=== PATIENT | male | born 1940 | race Asian ===

== ENCOUNTER 2017-08-30 19:27 | Inpatient (IN) | payer MEDICARE, MEDICAID ==
[~2017-08-30] VITALS: Ht 175.3 cm; Wt 65.8 kg
[2017-08-30] MEDS ORDERED: Acetaminophen 650 MG SUPP RECTAL ONE ×2 (19:45→20:30)
[2017-08-30] MEDS ORDERED: Vancomycin 1 GM in NS 275 ML IV ONE (19:45)
[2017-08-30 20:02] LABS: HEMATOCRIT 27.2 % (42.0-52.0); HEMOGLOBIN 9.6 G/DL (14.2-18.0); MEAN CORPUSCULAR VOLUME 88 FL (80-99); PLATELET COUNT 182 K/UL (150-450); RED BLOOD COUNT 3.09 M/UL (4.70-6.10); RED CELL DISTRIBUTION WIDTH 13.9 % (11.6-14.8); WHITE BLOOD COUNT 11.1 K/UL (4.8-10.8)
[2017-08-30 20:03] LABS: BASOPHILS % (AUTO) 0.3 % (0.0-2.0); EOSINOPHILS % (AUTO) 0.2 % (0.0-3.0); LYMPHOCYTES % (AUTO) 6.5 % (20.0-45.0)
[2017-08-30] MEDS: Cefepime HCl 1 GM in NS 55 ML IV SCH (20:11)
[2017-08-30 20:14] LABS: ANION GAP 10 mmol/L (5-15); BLOOD UREA NITROGEN 46 mg/dL (7-18); CARBON DIOXIDE 25 MMOL/L (21-32); CHLORIDE 90 MMOL/L (98-107); CREATININE 2.1 MG/DL (0.55-1.30); POTASSIUM 5.3 MMOL/L (3.5-5.1); SODIUM 125 MMOL/L (136-145)
[2017-08-30 20:27] LABS: ALANINE AMINOTRANSFERASE 41 U/L (12-78); ALBUMIN/GLOBULIN RATIO 0.7 (1.0-2.7); ALKALINE PHOSPHATASE 186 U/L (46-116); ASPARTATE AMINO TRANSFERASE 22 U/L (15-37); BILIRUBIN,TOTAL 0.4 MG/DL (0.2-1.0); CKMB < 0.5 NG/ML (0.0-3.6); CREATINE KINASE 68 U/L (26-308)
[2017-08-30 20:30] VITALS: BP 92/41
[2017-08-30 21:00] VITALS: BP 77/57
[2017-08-30 21:30] VITALS: BP 96/41
[2017-08-30 22:00] VITALS: BP 93/38
[2017-08-30] MEDS ORDERED: Albuterol/Ipratropium 3ml neb HHN PRN (22:00)
[2017-08-30] MEDS ORDERED: Piperacillin/Tazobactam 3.375 GM in NS 110 ML IVPB SCH (22:00)
[2017-08-30 22:11] LABS: APPEARANCE,URINE CLOUDY; BILIRUBIN, URINE NEGATIVE (NEGATIVE); COLOR,URINE YELLOW; GLUCOSE, URINE (UA) NEGATIVE (NEGATIVE); KETONES,URINE NEGATIVE (NEGATIVE); LEUKOCYTE ESTERASE ,URINE 2+ (NEGATIVE); NITRITE,URINE NEGATIVE (NEGATIVE); PH,URINE 5 (4.5-8.0); PROTEIN,URINE 2+ (NEGATIVE); UROBILINOGEN,URINE NORMAL MG/DL (0.0-1.0)
--- NOTE | 2017-08-30 22:20 | Emergency Room Report ---
History of Present Illness General Chief Complaint: Altered Level of Consciousness Source: Medical Record Present Illness HPI This patient presents from a [facility] facility. He has a history of respiratory failure and has a tracheostomy with blow-by oxygen. His a history of COPD, diabetes, epilepsy, CVA. He is aphasic at baseline. He presents from the [facility] facility for concern of fever/infection. There is no other history available. The patient is nonverbal. Allergies: Coded Allergies: No Known Allergies (Unverified , 08/30/17) Patient History Past Medical History: see triage record, DM, HTN, SD, CAD, COPD, CVA/TIA, dementia, seizures Past Surgical History: other - Trach/PEG Social History: Denies: smoking, alcohol use, drug use Reviewed Nursing Documentation: PMH: Agreed; PSxH: Agreed Nursing Documentation-PMH Past Medical History: No History, Except For Hx Hypertension: Yes Hx COPD: Yes - COPD, trach- non vent depenendent, pleural effusion Hx Diabetes: Yes Hx Gastrointestinal Problems: Yes - gtube, gerd Review of Systems All Other Systems: negative except mentioned in HPI Physical Exam Vital Signs Date Time Temp Pulse Resp B/P (MAP) Pulse Ox O2 Delivery O2 Flow Rate FiO2 08/30/17 19:23 101.2 113 16 93/56 93 T-piece 10.0 101.1 Sp02 EP Interpretation: reviewed, normal General Appearance: no apparent distress, alert, GCS 15, non-toxic Head: normocephalic, atraumatic ENT: no angioedema Neck: supple/symm/no masses, other - Tracheostomy/Trach Respiratory: no respiratory distress, no retraction, no accessory muscle use, rales, rhonchi Cardiovascular #1: no edema, tachycardia Gastrointestinal: normal bowel sounds, non tender, soft, non-distended, no guarding, no rebound, other - PEG Rectal: deferred Musculoskeletal: non-tender, other - At baseline Neurologic: alert, other - At baseline. Nonfocal. Psychiatric: mood/affect normal Skin: warm/dry, other - See RN skin exam Medical Decision Making Diagnostic Impression: Primary Impression: Pneumonia Additional Impressions: Hyponatremia Renal failure UTI (urinary tract infection) Severe sepsis ER Course This patient presents in severe sepsis and with pneumonia. He has a fever of 101 on arrival. He also is found to have a pneumonia on chest x-ray. He is given IV fluids and broad-spectrum antibiotics. I'm unsure of this patient's baseline renal function but his renal function is abnormal. The patient is chronically ill and has multiple chronic medical problems. He is admitted to the ICU. This patient is critically ill. This patient required complex medical decision- making, aggressive intervention, extensive laboratory workup and monitoring. Critical care time: 40 minutes. Laboratory Tests Test 08/30/17 19:30 08/30/17 21:15 08/30/17 21:35 White Blood Count 11.1 K/UL (4.8-10.8) H Red Blood Count 3.09 M/UL (4.70-6.10) L Hemoglobin 9.6 G/DL (14.2-18.0) L Hematocrit 27.2 % (42.0-52.0) L Mean Corpuscular Volume 88 FL (80-99) Mean Corpuscular Hemoglobin 31.1 PG (27.0-31.0) H Mean Corpuscular Hemoglobin Concent 35.4 G/DL (32.0-36.0) Red Cell Distribution Width 13.9 % (11.6-14.8) Platelet Count 182 K/UL (150-450) Mean Platelet Volume 6.1 FL (6.5-10.1) L Neutrophils (%) (Auto) 89.0 % (45.0-75.0) H Lymphocytes (%) (Auto) 6.5 % (20.0-45.0) L Monocytes (%) (Auto) 4.0 % (1.0-10.0) Eosinophils (%) (Auto) 0.2 % (0.0-3.0) Basophils (%) (Auto) 0.3 % (0.0-2.0) Sodium Level 125 MMOL/L (136-145) L Potassium Level 5.3 MMOL/L (3.5-5.1) H Chloride Level 90 MMOL/L (98-107) L Carbon Dioxide Level 25 MMOL/L (21-32) Anion Gap 10 mmol/L (5-15) Blood Urea Nitrogen 46 mg/dL (7-18) H Creatinine 2.1 MG/DL (0.55-1.30) H Estimate Glomerular Filtration Rate mL/min (>60) Glucose Level 81 MG/DL (74-106) Lactic Acid Level 2.10 mmol/L (0.66-2.22) Pending Calcium Level 9.0 MG/DL (8.5-10.1) Total Bilirubin 0.4 MG/DL (0.2-1.0) Aspartate Amino Transferase (AST) 22 U/L (15-37) Alanine Aminotransferase (ALT) 41 U/L (12-78) Alkaline Phosphatase 186 U/L (46-116) H Total Creatine Kinase 68 U/L (26-308) Creatine Kinase MB < 0.5 NG/ML (0.0-3.6) Creatine Kinase MB Relative Index 0.7 Troponin I 0.000 ng/mL (0.000-0.056) Total Protein 7.6 G/DL (6.4-8.2) Albumin 3.0 G/DL (3.4-5.0) L Globulin 4.6 g/dL Albumin/Globulin Ratio 0.7 (1.0-2.7) L Urine Color Yellow Urine Appearance Cloudy Urine pH 5 (4.5-8.0) Urine Specific Ruby 1.010 (1.005-1.035) Urine Protein 2+ (NEGATIVE) H Urine Glucose (UA) Negative (NEGATIVE) Urine Ketones Negative (NEGATIVE) Urine Occult Blood 5+ (NEGATIVE) H Urine Nitrite Negative (NEGATIVE) Urine Bilirubin Negative (NEGATIVE) Urine Urobilinogen Normal MG/DL (0.0-1.0) Urine Leukocyte Esterase 2+ (NEGATIVE) H Urine RBC Pending Urine WBC Pending Urine Squamous Epithelial Cells Pending Urine Bacteria Pending Microbiology Date/Time Source Procedure Growth Status 08/30/17 19:32 Nasal Nares Influenza Types A,B Antigen (SOPHIA) - Final Complete EKG Diagnostic Results Rate: tachycardiac Rhythm: other - S.tachycardia ST Segments: other - NSST Rhythm Strip Diag. Results EP Interpretation: yes Rate: 100's Rhythm: no PVC's, no ectopy, other - S.tach Chest X-Ray Diagnostic Results Chest X-Ray Diagnostic Results : Chest X-Ray Ordered: Yes # of Views/Limited/Complete: 1 View Indication: Other EP Interpretation: Yes Interpretation: other - RLL opacity Impression: Other - See above Electronically Signed by: Chente Last Vital Signs Date Time Temp Pulse Resp B/P (MAP) Pulse Ox O2 Delivery O2 Flow Rate FiO2 08/30/17 20:12 101.2 08/30/17 19:23 113 16 93/56 93 T-piece 10.0 Disposition: ADMITTED INPATIENT Condition: Critical Referrals: NORM SCOTT (PCP) ORALIA MARTINES D.O. Aug 30, 2017 22:20
[2017-08-30 23:00] VITALS: BP 97/37
[2017-08-30] MEDS: D5NS 1,000 ML IV SCH (23:31)
[2017-08-31] VITALS (24 sets, daily range): BP systolic 89–161; BP diastolic 40–130
[2017-08-31] MEDS: Piperacillin/Tazobactam 3.375 GM in D5W 110 ML IVPB SCH ×2 (00:10→06:32)
[2017-08-31] MEDS: Acetaminophen 650mg/20.3ml GT PRN ×2 (00:24→05:19)
[2017-08-31] MEDS: D5NS 1,000 ML IV SCH ×3 (05:20→21:50)
[2017-08-31] MEDS ORDERED: Piperacillin/Tazobactam 3.375 GM in D5W 110 ML IVPB SCH (06:00)
[2017-08-31 06:19] LABS: HEMATOCRIT 23.3 % (42.0-52.0); HEMOGLOBIN 8.3 G/DL (14.2-18.0); MEAN CORPUSCULAR VOLUME 91 FL (80-99); PLATELET COUNT 161 K/UL (150-450); RED BLOOD COUNT 2.56 M/UL (4.70-6.10)
[2017-08-31] MEDS ORDERED: HEPARIN SO5000 UNIT2 SUBQ (06:22)
[2017-08-31] MEDS ORDERED: METHYLPHENI5 MG/5 ML GT (06:22)
[2017-08-31] MEDS ORDERED: MULTIVITAMINS1 EAC8 GT (06:22)
[2017-08-31] MEDS ORDERED: NYSTATIN100000 UN1 ORAL (06:22)
[2017-08-31] MEDS ORDERED: CALCITRIOL0.25 MCG PO (06:22)
[2017-08-31] MEDS ORDERED: CALCITRIOL GT (06:22)
[2017-08-31] MEDS ORDERED: LEVOTHYROXINE75 MCG GT (06:22)
[2017-08-31] MEDS ORDERED: ZINC50 MG GT (06:22)
[2017-08-31] MEDS ORDERED: PANTOPRAZOLE SO40 MG GT (06:22)
[2017-08-31] MEDS ORDERED: BACTRIM DOUBLE S1 E1 ORAL (06:22)
[2017-08-31] MEDS ORDERED: TACROLIMUS1 MG GT (06:22)
[2017-08-31] MEDS ORDERED: HYDROCORTISONE5 MG GT (06:22)
[2017-08-31] MEDS ORDERED: ZOVIRAX200 MG GT (06:22)
[2017-08-31] MEDS ORDERED: LEVOTHYROXINE25 MCG GT (06:22)
[2017-08-31 06:30] LABS: ALANINE AMINOTRANSFERASE 37 U/L (12-78); ALBUMIN 2.6 G/DL (3.4-5.0); ALBUMIN/GLOBULIN RATIO 0.6 (1.0-2.7); ALKALINE PHOSPHATASE 155 U/L (46-116); ANION GAP 9 mmol/L (5-15); ASPARTATE AMINO TRANSFERASE 31 U/L (15-37); BILIRUBIN,TOTAL 0.5 MG/DL (0.2-1.0); BLOOD UREA NITROGEN 47 mg/dL (7-18); CALCIUM 8.3 MG/DL (8.5-10.1); CARBON DIOXIDE 21 MMOL/L (21-32); CHLORIDE 98 MMOL/L (98-107); POTASSIUM 5.5 MMOL/L (3.5-5.1); SODIUM 128 MMOL/L (136-145)
[2017-08-31] MEDS ORDERED: Sodium Polystyrene Sulfonate Enema RECTAL ONE (09:00)
[2017-08-31] MEDS ORDERED: Sodium Polystyrene Sulfonate Enema RECTAL SCH (09:15)
[2017-08-31] MEDS: Pantoprazole Inj IVP SCH (09:18)
[2017-08-31] MEDS: Heparin 5000 units/ml inj SUBQ SCH ×2 (09:38→20:40)
[2017-08-31] MEDS: Cefepime HCl 1 GM in NS 55 ML IV SCH (10:30)
[2017-08-31] MEDS: Acyclovir 200mg Cap GT SCH ×2 (11:24→18:00)
[2017-08-31] MEDS: Hydrocortisone 100mg Inj IV SCH ×3 (11:24→21:49)
[2017-08-31 11:29] LABS: CREATINE KINASE 741 U/L (26-308)
[2017-08-31] MEDS: Calcitriol 0.25mcg Cap PEG SCH (11:36)
--- NOTE | 2017-08-31 11:38 | Diagnostic Imaging Report ---
Indication: Dyspnea Comparison: None A single view chest radiograph was obtained. Findings: There is infiltrate suspected at the right lung base. Correlate clinically. Heart is borderline enlarged. Tracheostomy noted. Osteopenia noted. IMPRESSION: Possible infiltrate right lung base. Correlate clinically
[2017-08-31 13:08] LABS: APPEARANCE,URINE SLIGHTLY CLOUDY; BILIRUBIN, URINE NEGATIVE (NEGATIVE); GLUCOSE, URINE (UA) NEGATIVE (NEGATIVE); KETONES,URINE NEGATIVE (NEGATIVE); LEUKOCYTE ESTERASE ,URINE NEGATIVE (NEGATIVE); NITRITE,URINE NEGATIVE (NEGATIVE); PH,URINE 5 (4.5-8.0); PROTEIN,URINE 2+ (NEGATIVE); UROBILINOGEN,URINE NORMAL MG/DL (0.0-1.0)
[2017-08-31 13:12] LABS: COLOR,URINE YELLOW
[2017-08-31] MEDS: Zosyn 2.25 gm in D5W 55ml IV SCH ×2 (14:18→21:49)
[2017-08-31] MEDS: Vancomycin 750mg/NS 250ml IVPB SCH (19:54)
[2017-08-31] MEDS ORDERED: D5NS 1000ml IV ONE (19:54)
[2017-08-31] MEDS ORDERED: Tubing IV Secondary IV ONE (19:54)
--- NOTE | 2017-08-31 20:30 | History and Physical Report ---
DATE OF ADMISSION: 08/30/2017 CHIEF COMPLAINT: Sepsis and shock. HISTORY OF PRESENT ILLNESS: The patient is a 77-year-old male, who has history of cirrhosis. He is status post liver transplant that was done in March 2017. His hospital course was complicated by respiratory failure. He was transferred to a long-term acute care. He returned later to [facility] a few weeks ago with complaints of a broken G-tube. At that time, he was residing in [facility]. He was admitted for several days and then later discharged to the detention facility a little over a week ago. On the day of transfer here, the patient was noted to be febrile and short of breath. He was also hypotensive. On evaluation in the emergency room, the patient was hypotensive. He had x-ray evidence of pneumonia. He had an elevated white count and evidence of acute renal failure. He is currently on T-piece and now admitted for further evaluation and care. He is somnolent and sleepy. PAST MEDICAL HISTORY: As above. He has a history of pituitary adenoma, status post resection, history of diabetes, history of acute renal failure, history of adrenal insufficiency, history of DVT/PE, and GERD. History Of prostate cancer. PAST SURGICAL HISTORY: Includes liver transplant, pituitary adenoma resection, G-tube, and tracheostomy. CURRENT MEDICATIONS: Reconciled and reviewed. ALLERGIES: None. SOCIAL HISTORY: Negative for tobacco, ethanol, or drugs. FAMILY HISTORY: None. REVIEW OF SYSTEMS: From the patient is unobtainable as the patient is confused. PHYSICAL EXAMINATION: VITAL SIGNS: Temperature 101.3 degrees, pulse , respirations 36, and blood pressure 128/101. GENERAL: The patient is well-developed and is somnolent, sleepy, and poorly responsive. NECK: Supple. HEART: Regular rate and rhythm. LUNGS: rhonchi and rales. ABDOMEN: Soft, nontender, and nondistended. EXTREMITIES: Without clubbing, cyanosis, or edema. LABORATORY AND DIAGNOSTIC DATA: White count was 11, hemoglobin 9.6, hematocrit 27, and platelets 182,000. Sodium 125, potassium 5.3, chloride 90, bicarbonate 25, BUN 46, and creatinine 2.1. UA showed 2 to 4 WBCs. Per report from ER, the patient had possible pneumonia on x-ray. ASSESSMENT: This is a 77-year-old male with history of liver transplant, chronic respiratory failure, diabetes, history of adrenal insufficiency, and hypothyroidism, admitted with septic shock from pneumonia. 1. Septic shock. 2. Pneumonia. 3. History of adrenal insufficiency. 4. Respiratory failure. 5. Acute renal failure. 6. Toxic metabolic encephalopathy. 7. Hyponatremia. 8. Hyperkalemia. PLAN: Aggressive fluid resuscitation. Pressors as needed. Broad-spectrum IV antibiotic therapy. Infectious Diseases, Cardiology, Pulmonary, GI, and Renal consultations will be obtained. We will check a venous duplex of the lower extremities. Check an echo. Plan of care was discussed with the patient's son at the bedside. Rigoberto Rai M.D. DR: Rafaela JOB#: [id number] CC:
--- NOTE | 2017-08-31 21:00 | Consultation ---
DATE OF CONSULTATION: 08/31/2017 PULMONARY CONSULTATION REFERRING PHYSICIAN: Rigoberto Rai M.D. REASON FOR CONSULTATION: Respiratory failure and pneumonia. HISTORY OF PRESENT ILLNESS: The patient is a 77-year-old male, who is status post orthotopic liver transplantation. The patient with history of stormy hospital course over at [facility]. The patient with respiratory failure, tracheostomy, and on oxygen. The patient with history of COPD. The patient has failed to wean. The patient was seen, evaluated, and noted to be somewhat hypotensive. Also with evidence of pneumonia. The patient with acute change overall. He was recently seen and was noted to be fairly stable and comfortable. Now, noted to have fevers. The patient was desaturating at the senior care. Also noted to be tachycardic. The patient's care discussed and reviewed. The findings reviewed. The care discussed with family at bedside, they would like him to transfer to [facility] when bed is available. PAST MEDICAL HISTORY: Notable for diabetes, hypertension, DC, CAD, COPD, CVA, dementia, seizures, tracheostomy, G-tube, lung transplant, pleural effusions, and prior pneumonia. MEDICATIONS: Reviewed. ALLERGIES: Reviewed. SOCIAL HISTORY: Currently, at [facility]. Currently, nonsmoker and nondrinker. The patient is mostly bedbound. REVIEW OF SYSTEMS: Unobtainable due to the patient's present state. PHYSICAL EXAMINATION: VITAL SIGNS: Notable for T-max 101.4 degrees, heart rate 124, O2 sat 96%. The patient is on trach collar. The patient is on high FiO2 at present, but saturations are adequate 98%. Respiratory rate is 32 to 36. HEENT: Negative. NECK: Supple. Tracheostomy is in midline. Carotids 2+. LUNGS: With scattered rhonchi. Moderate air entry, slightly reduced. CARDIAC: Normal S1 and S2. Somewhat tachycardic without murmurs, rubs, or gallops. ABDOMEN: Soft and nontender. No distention. EXTREMITIES: No cyanosis, clubbing, or edema. NEUROLOGICAL: Somewhat withdrawn, appears to be more lethargic than baseline. LABORATORY DATA: Reviewed. White count 12, hemoglobin 8.3, hematocrit 23.3, and platelets of 161,000. Chemistries noted and reviewed. Sodium 128, potassium 5.5, BUN 47, and creatinine is 2. Liver enzymes fairly negative except the alkaline phosphate 155. The cultures are thus far pending. IMPRESSION: 1. Respiratory failure. 2. Evidence of pneumonia. 3. Evidence of fevers. 4. Tachycardia. 5. Evidence of acute on chronic renal failure. 6. Leukocytosis. 7. Anemia. 8. Possible sepsis. 9. Severe protein-calorie malnutrition. RECOMMENDATIONS: Supportive care. Monitor arterial blood gases. Monitor acid-base status. Nebulized therapy with DuoNeb, empiric antibiotics, and Solu-Cortef. Resume medications. Monitor hypotension. Pressors as needed. Infectious Diseases evaluation. Stabilize and transfer the patient to [facility] once bed is available and the patient is otherwise stable. Matias Hernandez M.D. DR: Lui JOB#: [id number] CC: FATIMAH
--- NOTE | 2017-08-31 21:30 | Consultation ---
DATE OF CONSULTATION: 08/31/2017 NEPHROLOGY CONSULTATION CONSULTING PHYSICIAN: Israel Damian M.D. REFERRING PHYSICIAN: Tab Salgado M.D. REASON FOR CONSULTATION: Acute kidney injury. HISTORY OF PRESENT ILLNESS: The patient presents from an [facility] with a fever. He is a 77-year-old man, who is on a tracheostomy, gastrostomy, has had central nervous system injury. 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 He is unable to give a history. PAST SURGICAL HISTORY: Prior surgery includes pituitary surgery, coronary angio and intervention, liver transplant, and tracheostomy. MEDICATIONS: From [facility] facility have been reviewed. PHYSICAL EXAMINATION: GENERAL: The patient is having a tracheostomy. He blinks his eyes, does not follow on the ventilator. VITAL SIGNS: Temperature 98.9, pulse 112, respirations 30, blood pressure 135/85, and saturation 100% on the ventilator. HEAD EYES, EARS, NOSE, AND THROAT: There is ptosis of the right eyelid. Sclerae are nonicteric. Throat is clear. NECK: Tracheostomy. LUNGS: Bilateral crackles and rhonchi. HEART: Rhythm is regular and tachycardic. ABDOMEN: Soft. I am unable to feel liver or spleen. There is a gastrostomy. EXTREMITIES: Show muscle wasting. No edema. NEUROLOGIC: He is unresponsive. He moves his extremities irritative stimuli. LABORATORY AND DIAGNOSTIC DATA: Pertinent labs, today, sodium 128, potassium 5.5, chloride 98, CO2 21, BUN 47, and creatinine is 2. Albumin is 2.6. CK is 741. Uric acid 5.1. Blood gas, pH 7.45, pCO2 26.2, pO2 is 61.5, - 5.6 base excess. White count 12, hemoglobin 8.3. Chest x-ray shows a possible infiltrate. recently noted labs on 08/19/2017, the creatinine was 1.1 and BUN is 42. IMPRESSION: Acute kidney injury with oliguria, possibly acute tubular necrosis, secondary to sepsis, possibly nephrotoxic, secondary to immunosuppressants, possible prerenal component. PLAN: The patient will be treated with broad-spectrum antibiotics. Intravenous hydration. Ortega catheter. Check urine electrolytes. Avoid potassium retaining medicines. His condition is critical and guarded. Thank you so much. Israel Damian M.D. DR: BELINDA JOB#: [id number] CC:
--- NOTE | 2017-08-31 22:15 | Consultation ---
DATE OF CONSULTATION: 08/31/2017 INFECTIOUS DISEASES CONSULTATION CONSULTING PHYSICIAN: Farida Barakat M.D. REFERRING PHYSICIAN: Rigoberto Rai M.D. REASON FOR CONSULTATION: Pneumonia. HISTORY OF PRESENTING ILLNESS: This is a 77-year-old gentleman with history of respiratory failure, status post tracheostomy, diabetes, hypertension, CVA, and dementia, who comes in from a residential facility with fevers. He was seen in [facility] emergency room where he was found to have pneumonia and an Infectious Diseases consultation has been obtained for antibiotics. PAST MEDICAL HISTORY: 1. History of diabetes. 2. Hypertension. 3. Myocardial infarction. 4. Coronary artery disease. 5. COPD. 6. CVA. 7. Dementia. 8. Seizures. 9. Respiratory failure, status post tracheostomy. 10. Status post G-tube placement. MEDICATIONS: As an inpatient, the patient is on Bactrim, IV vancomycin, Zosyn, acyclovir, levothyroxine, Prograf, fluconazole, calcitriol, hydrocortisone, Protonix, subcutaneous heparin, Zofran, Tylenol, and albuterol. SOCIAL HISTORY: He does not smoke, drink, or use drugs. FAMILY HISTORY: Unknown. REVIEW OF SYSTEMS: Unable to obtain currently. PHYSICAL EXAMINATION: VITAL SIGNS: Temperature of 101.3 degrees, T-max of 101.4 degrees, pulse of 112, respiratory rate of 32, blood pressure 149/130, and O2 saturation of 98%. HEENT: Pupils equally reactive to light and accommodation. Mouth appears clean without thrush. NECK: Supple. No adenopathy. No JVD. The patient is on a T-tube. CARDIOVASCULAR: Regular rate and rhythm. No murmurs. LUNGS: Wheezing and crackles noted bilaterally. ABDOMEN: Soft and nontender. No organomegaly. G-tube site appears clean. EXTREMITIES: No cyanosis. No clubbing. No edema. LABORATORY AND DIAGNOSTIC DATA: White count of 12, hemoglobin 8.3, hematocrit 23.3, MCV 91, and platelet count of 161,000 with neutrophils of 92%. Sodium 128, potassium 5.5, chloride 98, bicarbonate 21, BUN 47, creatinine of 2, glucose 98, and calcium 8.3. Total bilirubin 0.5. AST 31, ALT 37, and alkaline phosphatase 155. Total protein 6.7. Albumin 2.6. UA showing 2 to 4 white cells. Nasal swab was negative for influenza A and B. Urine cultures are pending. Blood cultures are pending. Chest x-ray showing right lower lobe opacity. ASSESSMENT: This is a 77-year-old gentleman with history of diabetes, hypertension, and respiratory failure, status post tracheostomy, who comes in with: 1. Fevers and is found to have pneumonia on the right side. 2. Chronic obstructive pulmonary disease. 3. Diabetes. 4. Hypertension. 5. Renal failure. PLAN: 1. Continue IV vancomycin and Zosyn for now. 2. We will order sputum for Gram stain and culture. 3. We will order for serum Legionella antibody. 4. We will order for mycoplasma serology. 5. We will follow up cultures and adjust antibiotics accordingly. I would like to thank, Dr. Rai, for this consultation. Farida Barakat M.D. DR: Anand JOB#: [id number] CC: Rigoberto Rai M.D.
[2017-09-01] VITALS (24 sets, daily range): BP systolic 108–168; BP diastolic 58–105
[2017-09-01] MEDS: D5NS 1,000 ML IV SCH ×4 (02:50→22:21)
--- NOTE | 2017-09-01 04:30 | Progress Note ---
DATE: 08/31/2017 CARDIOLOGY PROGRESS NOTE SUBJECTIVE: The patient remains in the intensive care unit. He is on a trach collar. His blood pressure has improved. He also is defervescing. Monitored rhythm, sinus tachycardia. OBJECTIVE: VITAL SIGNS: Afebrile, blood pressure 135/85 , pulse 112, and respirations 30. NECK: Trach site reveals thin secretions. LUNGS: Bilateral rales and rhonchi. HEART: Regular rhythm. Rapid rate. Normal S1, S2. ABDOMEN: With gastrostomy. EXTREMITIES: With no edema. Muscle wasting. NEUROLOGIC: The patient is unresponsive. He withdraws to irritable stimuli. LABORATORY AND DIAGNOSTIC DATA: White count 12, hemoglobin 8.3. ABG, 7.45, 26, and 61. Sodium 128, potassium 5.5, bicarbonate 21, BUN 47, and creatinine 2.0. Albumin 2.6. Chest x-ray reveals probable pneumonia. IMPRESSION: 1. Sepsis with recovering shock. 2. Pneumonia. 3. Respiratory failure. 4. History of adrenal insufficiency. 5. History of DVT and pulmonary embolus. 6. Acute myocardial ischemia. 7. Secondary sinus tachycardia. 8. Hyponatremia. 9. Hyperkalemia. 10. History of liver transplant. 11. Hypoxia. 12. Adrenocortical insufficiency. 13. Hypothyroidism, on replacement therapy. PLAN: 1. Broad-spectrum antibiotics 2. Intravenous fluid hydration. 3. Avoid further pressors. 4. Monitor electrolytes and cardiorenal parameters. 5. DVT prophylaxis. 6. Check thyroid panel. 7. stress dose steroids. 8. Remains critical and guarded. Espinoza Salgado M.D. : DAMIR JOB#: [id number] CC:
--- NOTE | 2017-09-01 04:30 | Consultation ---
DATE OF CONSULTATION: 08/30/2017 CARDIOLOGY CONSULTATION CONSULTING PHYSICIAN: Espinoza Salgado M.D. REQUESTING PHYSICIAN: Rigoberto Rai M.D. REASON: Hypotension. HISTORY OF PRESENT ILLNESS: This is a 77-year-old male, residing at a longterm facility with multiple medical problems including respiratory failure with tracheostomy and history of liver transplant. He is aphasic at baseline. He was transported to the emergency room because of fevers and was notably hypotensive prompting this consultation. PAST MEDICAL HISTORY: From records include liver transplant, chronic obstructive pulmonary disease, respiratory failure with tracheostomy, type 2 diabetes mellitus, adrenocortical , hypertension, history of myocardial infarction, history of cerebrovascular accident with dementia, hypothyroidism, seizure disorder, dysphagia with G-tube, and history of tuberculosis of the lung. ALLERGIES: None. FAMILY HISTORY: None known. SOCIAL HISTORY: Negative for smoking, alcohol, or substance abuse. MEDICATIONS: Prior to admission, reviewed and reconciled. REVIEW OF SYSTEMS: He received a liver transplant in 03/2017 for cryptogenic cirrhosis and has had multiple subsequent complications. There is a history of coronary artery disease, but no record at this time regarding current status of coronaries or ejection fraction. The patient apparently has had a myocardial infarction in the past. There is no record of cardiac arrhythmias. PHYSICAL EXAMINATION: GENERAL: He is on ventilator support via trach. VITAL SIGNS: Blood pressure 98/57, pulse 113, and respirations 18. LUNGS: Bilateral breath sounds. HEART: Regular rhythm and rate. Normal S1, S2 with a fourth heart sound. ABDOMEN: Soft, nontender. No masses. EXTREMITIES: With muscle atrophy. No edema. The patient withdraws to pain, but is nonresponsive. LABORATORY AND DIAGNOSTIC DATA: Admission chest x-ray is notable for right lower lobe infiltrate. EKG with sinus tachycardia, nonspecific ST-T wave changes. Laboratories notable for white count of 11, hemoglobin of 9.6. Lactic acid 2.1. Troponin is negative. Sodium is 125, potassium 5.3, bicarbonate 25, chloride 92, BUN 46, creatinine 2.1, and glucose 81. IMPRESSION: 1. Shock. 2. Sepsis. 3. Adrenocortical insufficiency. 4. Hyponatremia. 5. Hypochloremia. 6. Acute on chronic renal failure. 7. History of liver transplant. 8. Lactic acidosis. 9. Ischemic heart disease with possible prior percutaneous coronary intervention. 10. Cerebrovascular disease. 11. Respiratory failure with tracheostomy. 12. Condition is critical and prognosis is extremely guarded. PLAN: 1. ICU care. 2. Ventilator support. 3. Pancultured already. 4. Broad-spectrum antibiotics. 5. Saline hydration. 6. Stress dose steroids. 7. Stress ulcer prophylaxis. 8. Serial lactic acid levels and monitoring of ABG. 9. Check thyroid function and adjust all medication regimen according to clinical parameters on a daily basis. Espinoza Salgado M.D. DR: DAMIR JOB#: [id number] CC:
[2017-09-01 04:32] LABS: HEMATOCRIT 25.8 % (42.0-52.0); HEMOGLOBIN 9.4 G/DL (14.2-18.0); MEAN CORPUSCULAR VOLUME 89 FL (80-99); PLATELET COUNT 132 K/UL (150-450); RED BLOOD COUNT 2.88 M/UL (4.70-6.10); RED CELL DISTRIBUTION WIDTH 13.7 % (11.6-14.8); WHITE BLOOD COUNT 16.1 K/UL (4.8-10.8)
[2017-09-01 05:12] LABS: ALANINE AMINOTRANSFERASE 42 U/L (12-78); ALBUMIN 2.5 G/DL (3.4-5.0); ALBUMIN/GLOBULIN RATIO 0.6 (1.0-2.7); ALKALINE PHOSPHATASE 163 U/L (46-116); ANION GAP 12 mmol/L (5-15); ASPARTATE AMINO TRANSFERASE 55 U/L (15-37); BILIRUBIN,TOTAL 0.4 MG/DL (0.2-1.0); BLOOD UREA NITROGEN 37 mg/dL (7-18); CALCIUM 8.3 MG/DL (8.5-10.1); CARBON DIOXIDE 20 MMOL/L (21-32); CHLORIDE 101 MMOL/L (98-107); CREATININE 1.8 MG/DL (0.55-1.30); POTASSIUM 4.4 MMOL/L (3.5-5.1); SODIUM 133 MMOL/L (136-145)
[2017-09-01] MEDS: Hydrocortisone 100mg Inj IV SCH ×3 (05:50→20:48)
[2017-09-01] MEDS: Zosyn 2.25 gm in D5W 55ml IV SCH ×2 (05:51→14:00)
--- NOTE | 2017-09-01 07:43 | Critical Care Progress Note ---
Assessment/Plan Assessment/Plan IMPRESSION: 1. Respiratory failure. 2. Evidence of pneumonia. 3. Evidence of fevers. 4. Tachycardia. 5. Evidence of acute on chronic renal failure. 6. Leukocytosis. 7. Anemia. 8. Possible sepsis. 9. Severe protein-calorie malnutrition. 10. acute on chronic encephalopathy 11. hypoxemia 12. s/p OLT PLAN care noted IV antibiotics respiratory care as is Ventilatory support for now SNF meds reviewed supportive care suction as needed titrate oxygen therapy monitor labs and cultures check ammonia level prognosis guarded at present transfer to [facility] when bed available medications/laboratory data/nursing notes/ICU care reviewed in detail note reviewed and edited care discussed with RN and RT ICU time spent 40 minutes Critical Care - Subjective Interval Events: care noted and reviewed difficulty off the vent shallow respirations requiring 100% oxygen placed back on the vent ROS Limited/Unobtainable: Yes Condition: critical EKG Rhythm: Sinus Rhythm Residuals: minimal Tube Feeding Tolerated: yes I&O: Intake and Output 08/31/17 09/01/17 19:00 07:00 Intake Total 800 ml 2210 ml Output Total 150 ml 1310 ml Balance 650 ml 900 ml Intake Oral 0 ml 0 ml IV Total 800 ml 2160 ml Other 50 ml Output Urine Total 150 ml 1310 ml Critical Care - Objective CXR: possible infiltrate right base Last 24 Hour Vital Signs Date Time Temp Pulse Resp B/P (MAP) Pulse Ox O2 Delivery O2 Flow Rate FiO2 09/01/17 07:00 105 35 154/75 100 Mechanical Ventilator 80 09/01/17 06:45 104 33 80 09/01/17 06:35 80 09/01/17 06:00 91 27 152/74 100 Mechanical Ventilator 100 09/01/17 05:00 95 34 138/66 100 Mechanical Ventilator 100 09/01/17 04:52 105 31 100 09/01/17 04:34 72 09/01/17 04:00 99.8 106 31 168/81 100 Mechanical Ventilator 100 99.8 09/01/17 03:10 105 29 100 09/01/17 03:00 108 36 150/69 87 Trach Collar 100 09/01/17 02:00 109 35 147/70 88 Trach Collar 100 09/01/17 01:30 T-piece 12.0 100 09/01/17 01:30 92 T-piece 12.0 100 09/01/17 01:00 109 31 150/77 92 Trach Collar 100 09/01/17 00:00 98.7 110 34 147/69 93 Trach Collar 100 98.7 09/01/17 00:00 100 08/31/17 23:29 111 08/31/17 23:00 113 31 146/54 92 Trach Collar 100 08/31/17 22:00 111 33 134/67 91 Trach Collar 100 08/31/17 21:00 112 35 161/80 90 Trach Collar 100 08/31/17 20:24 110 08/31/17 20:04 95 T-piece 12.0 100 08/31/17 20:04 T-piece 12.0 100 08/31/17 20:00 98.0 111 34 152/73 92 Trach Collar 100 98.0 08/31/17 20:00 100 08/31/17 19:00 107 30 147/90 96 Trach Collar 100 08/31/17 18:00 109 32 128/91 97 Trach Collar 100 08/31/17 17:00 108 31 122/95 96 Trach Collar 100 08/31/17 16:00 98.9 112 30 135/85 97 Trach Collar 100 98.9 08/31/17 16:00 112 08/31/17 16:00 100 08/31/17 15:00 111 31 144/89 96 Trach Collar 100 08/31/17 14:14 190/110 08/31/17 14:00 110 32 135/90 97 Trach Collar 100 08/31/17 13:00 108 31 150/95 96 Trach Collar 100 08/31/17 12:50 T-piece 12.0 100 08/31/17 12:50 96 T-piece 12.0 100 08/31/17 12:00 100 08/31/17 12:00 98.9 112 30 135/85 96 Trach Collar 100 98.9 08/31/17 12:00 110 08/31/17 11:00 111 32 144/90 95 Trach Collar 100 08/31/17 10:00 112 35 137/79 94 Trach Collar 100 08/31/17 09:00 110 32 114/80 96 Trach Collar 100 08/31/17 08:25 98 T-piece 12.0 100 08/31/17 08:25 T-piece 12.0 100 08/31/17 08:00 100 08/31/17 08:00 114 08/31/17 08:00 98.4 114 30 120/86 93 Trach Collar 100 98.4 Labs: Laboratory Tests Test 08/31/17 10:04 08/31/17 10:30 08/31/17 11:50 09/01/17 02:36 Arterial Blood pH 7.450 (7.350-7.450) 7.341 (7.350-7.450) Arterial Blood Partial Pressure CO2 26.2 mmHg (35.0-45.0) L 34.0 mmHg (35.0-45.0) L Arterial Blood Partial Pressure O2 61.5 mmHg (75.0-100.0) L 57.1 mmHg (75.0-100.0) L Arterial Blood HCO3 17.9 mmol/L (22.0-26.0) L 18.0 mmol/L (22.0-26.0) L Arterial Blood Oxygen Saturation 91.2 % (92.0-98.0) L 86.6 % (92.0-98.0) L Arterial Blood Base Excess -5.3 -7.0 Zia Test Positive Positive Urine Color Pending Urine Appearance Pending Urine pH Pending Urine Specific [place] Pending Urine Protein Pending Urine Glucose (UA) Pending Urine Ketones Pending Urine Occult Blood Pending Urine Nitrite Pending Urine Bilirubin Pending Urine Urobilinogen Pending Urine Leukocyte Esterase Pending Urine RBC Pending Urine WBC Pending Urine Squamous Epithelial Cells Pending Urine Bacteria Pending Urine Osmolality 313 mOsm/kg (429-449) L Urine Random Sodium 32 mmol/L (20-110) Urine Creatinine 104.8 MG/DL (30.0-125.0) Urine Potassium Timed 41 mmol/L (12-62) Legionella pneumophila Group 1 Ab Pending Legionella pneumophilia IgM Group 1 Pending Mycoplasma pneumoniae IgG Antibody Pending Mycoplasma pneumoniae IgM Ab Titer Pending Test 09/01/17 04:18 White Blood Count 16.1 K/UL (4.8-10.8) H Red Blood Count 2.88 M/UL (4.70-6.10) L Hemoglobin 9.4 G/DL (14.2-18.0) L Hematocrit 25.8 % (42.0-52.0) L Mean Corpuscular Volume 89 FL (80-99) Mean Corpuscular Hemoglobin 32.6 PG (27.0-31.0) H Mean Corpuscular Hemoglobin Concent 36.5 G/DL (32.0-36.0) H Red Cell Distribution Width 13.7 % (11.6-14.8) Platelet Count 132 K/UL (150-450) L Mean Platelet Volume 6.2 FL (6.5-10.1) L Neutrophils (%) (Auto) % (45.0-75.0) Lymphocytes (%) (Auto) % (20.0-45.0) Monocytes (%) (Auto) % (1.0-10.0) Eosinophils (%) (Auto) % (0.0-3.0) Basophils (%) (Auto) % (0.0-2.0) Neutrophils % (Manual) Pending Lymphocytes % (Manual) Pending Platelet Estimate Pending Platelet Morphology Pending Sodium Level 133 MMOL/L (136-145) L Potassium Level 4.4 MMOL/L (3.5-5.1) Chloride Level 101 MMOL/L (98-107) Carbon Dioxide Level 20 MMOL/L (21-32) L Anion Gap 12 mmol/L (5-15) Blood Urea Nitrogen 37 mg/dL (7-18) H Creatinine 1.8 MG/DL (0.55-1.30) H Estimat Glomerular Filtration Rate mL/min (>60) Glucose Level 185 MG/DL (74-106) H Calcium Level 8.3 MG/DL (8.5-10.1) L Total Bilirubin 0.4 MG/DL (0.2-1.0) Aspartate Amino Transf (AST/SGOT) 55 U/L (15-37) H Alanine Aminotransferase (ALT/SGPT) 42 U/L (12-78) Alkaline Phosphatase 163 U/L (46-116) H Total Protein 7.0 G/DL (6.4-8.2) Albumin 2.5 G/DL (3.4-5.0) L Globulin 4.5 g/dL Albumin/Globulin Ratio 0.6 (1.0-2.7) L Tacrolimus (Prograf) Level Pending Objective: HEENT: Negative. NECK: Supple. Tracheostomy is in midline. Carotids 2+. LUNGS: With some rhonchi. Moderate air entry, slightly reduced. CARDIAC: Normal S1 and S2. RRR without murmurs, rubs, or gallops. ABDOMEN: Soft and nontender. No distention. no HSM; GT in place EXTREMITIES: No cyanosis, clubbing, or edema. NEUROLOGICAL: remains withdrawn, lethargic Micro: Microbiology Date/Time Source Procedure Growth Status 08/30/17 19:40 Blood Blood Culture - Preliminary NO GROWTH AFTER 24 HOURS Resulted 08/30/17 19:30 Blood Blood Culture - Preliminary NO GROWTH AFTER 24 HOURS Resulted 08/30/17 19:32 Nasal Nares Influenza Types A,B Antigen (SOPHIA) - Final Complete 08/30/17 21:15 Urine,Clean Catch Urine Culture - Preliminary Resulted NORM SCOTT Sep 01, 2017 07:43
[2017-09-01] MEDS: Acyclovir 200mg Cap GT SCH ×2 (08:31→18:00)
[2017-09-01] MEDS: Pantoprazole Inj IVP SCH (08:31)
[2017-09-01] MEDS: Calcitriol 0.25mcg Cap PEG SCH (08:31)
[2017-09-01] MEDS: Heparin 5000 units/ml inj SUBQ SCH ×2 (08:32→20:48)
[2017-09-01] MEDS ORDERED: D5NS 1000ml IV ONE (09:45)
[2017-09-01] MEDS ORDERED: Tubing IV Secondary IV ONE (09:45)
[2017-09-01] MEDS ORDERED: NS 275ml ONE (09:45)
[2017-09-01] MEDS ORDERED: Sterile Water Irrig 1000ml IRRIG ONE (09:45)
--- NOTE | 2017-09-01 10:50 | Infectious Diseases Prog Note ---
Assessment/Plan Assessment/Plan A; Sepsis Pneumonia Hypoxic respiratory failure Acute renal failure Dementia P: Continue Zosyn & Vancomycin will f/u cultures Subjective ROS Limited/Unobtainable: Yes Allergies: Coded Allergies: No Known Allergies (Unverified , 08/30/17) Objective Vital Signs Last 24 Hour Vital Signs Date Time Temp Pulse Resp B/P (MAP) Pulse Ox O2 Delivery O2 Flow Rate FiO2 09/01/17 10:32 102 31 60 09/01/17 08:47 102 32 70 09/01/17 07:00 105 35 154/75 100 Mechanical Ventilator 80 09/01/17 06:45 104 33 80 09/01/17 06:35 80 09/01/17 06:00 91 27 152/74 100 Mechanical Ventilator 100 09/01/17 05:00 95 34 138/66 100 Mechanical Ventilator 100 09/01/17 04:52 105 31 100 09/01/17 04:34 72 09/01/17 04:00 99.8 106 31 168/81 100 Mechanical Ventilator 100 99.8 09/01/17 03:10 105 29 100 09/01/17 03:00 108 36 150/69 87 Trach Collar 100 09/01/17 02:00 109 35 147/70 88 Trach Collar 100 09/01/17 01:30 T-piece 12.0 100 09/01/17 01:30 92 T-piece 12.0 100 09/01/17 01:00 109 31 150/77 92 Trach Collar 100 09/01/17 00:00 98.7 110 34 147/69 93 Trach Collar 100 98.7 09/01/17 00:00 100 08/31/17 23:29 111 08/31/17 23:00 113 31 146/54 92 Trach Collar 100 08/31/17 22:00 111 33 134/67 91 Trach Collar 100 08/31/17 21:00 112 35 161/80 90 Trach Collar 100 08/31/17 20:24 110 08/31/17 20:04 95 T-piece 12.0 100 08/31/17 20:04 T-piece 12.0 100 08/31/17 20:00 98.0 111 34 152/73 92 Trach Collar 100 98.0 08/31/17 20:00 100 08/31/17 19:00 107 30 147/90 96 Trach Collar 100 08/31/17 18:00 109 32 128/91 97 Trach Collar 100 08/31/17 17:00 108 31 122/95 96 Trach Collar 100 08/31/17 16:00 98.9 112 30 135/85 97 Trach Collar 100 98.9 08/31/17 16:00 112 08/31/17 16:00 100 08/31/17 15:00 111 31 144/89 96 Trach Collar 100 08/31/17 14:14 190/110 08/31/17 14:00 110 32 135/90 97 Trach Collar 100 08/31/17 13:00 108 31 150/95 96 Trach Collar 100 08/31/17 12:50 T-piece 12.0 100 08/31/17 12:50 96 T-piece 12.0 100 08/31/17 12:00 100 08/31/17 12:00 98.9 112 30 135/85 96 Trach Collar 100 98.9 08/31/17 12:00 110 08/31/17 11:00 111 32 144/90 95 Trach Collar 100 Height (Feet): 5 Height (Inches): 9.00 Weight (Pounds): 152 HEENT: status post trach Respiratory/Chest: respiratory distress, other - coarse sounds on ventilator Cardiovascular: tachycardia Abdomen: soft, non tender, other - GT feeding Extremities: no edema Neurologic/Psychiatric: other - opens eyes only Microbiology Date/Time Source Procedure Growth Status 08/30/17 19:40 Blood Blood Culture - Preliminary NO GROWTH AFTER 24 HOURS Resulted 08/30/17 19:30 Blood Blood Culture - Preliminary NO GROWTH AFTER 24 HOURS Resulted 08/30/17 19:32 Nasal Nares Influenza Types A,B Antigen (SOPHIA) - Final Complete 08/30/17 21:15 Urine,Clean Catch Urine Culture - Preliminary Resulted Laboratory Tests Test 08/31/17 11:50 09/01/17 02:36 09/01/17 04:18 09/01/17 08:25 Legionella pneumophila Group 1 Ab Pending Legionella pneumophilia IgM Group 1 Pending Mycoplasma pneumoniae IgG Antibody Pending Mycoplasma pneumoniae IgM Ab Titer Pending Arterial Blood pH 7.341 (7.350-7.450) 7.330 (7.350-7.450) Arterial Blood Partial Pressure CO2 34.0 mmHg (35.0-45.0) L 37.0 mmHg (35.0-45.0) Arterial Blood Partial Pressure O2 57.1 mmHg (75.0-100.0) L 87.8 mmHg (75.0-100.0) Arterial Blood HCO3 18.0 mmol/L (22.0-26.0) L 19.2 mmol/L (22.0-26.0) L Arterial Blood Oxygen Saturation 86.6 % (92.0-98.0) L 96.1 % (92.0-98.0) Arterial Blood Base Excess -7.0 -6.1 Zia Test Positive Positive White Blood Count 16.1 K/UL (4.8-10.8) H Red Blood Count 2.88 M/UL (4.70-6.10) L Hemoglobin 9.4 G/DL (14.2-18.0) L Hematocrit 25.8 % (42.0-52.0) L Mean Corpuscular Volume 89 FL (80-99) Mean Corpuscular Hemoglobin 32.6 PG (27.0-31.0) H Mean Corpuscular Hemoglobin Concent 36.5 G/DL (32.0-36.0) H Red Cell Distribution Width 13.7 % (11.6-14.8) Platelet Count 132 K/UL (150-450) L Mean Platelet Volume 6.2 FL (6.5-10.1) L Neutrophils (%) (Auto) % (45.0-75.0) Lymphocytes (%) (Auto) % (20.0-45.0) Monocytes (%) (Auto) % (1.0-10.0) Eosinophils (%) (Auto) % (0.0-3.0) Basophils (%) (Auto) % (0.0-2.0) Differential Total Cells Counted 100 Neutrophils % (Manual) 87 % (45-75) H Lymphocytes % (Manual) 3 % (20-45) L Monocytes % (Manual) 2 % (1-10) Eosinophils % (Manual) 0 % (0-3) Basophils % (Manual) 0 % (0-2) Band Neutrophils 8 % (0-8) Platelet Estimate Decreased L Platelet Morphology Normal Anisocytosis 1+ Sodium Level 133 MMOL/L (136-145) L Potassium Level 4.4 MMOL/L (3.5-5.1) Chloride Level 101 MMOL/L (98-107) Carbon Dioxide Level 20 MMOL/L (21-32) L Anion Gap 12 mmol/L (5-15) Blood Urea Nitrogen 37 mg/dL (7-18) H Creatinine 1.8 MG/DL (0.55-1.30) H Estimat Glomerular Filtration Rate mL/min (>60) Glucose Level 185 MG/DL (74-106) H Calcium Level 8.3 MG/DL (8.5-10.1) L Total Bilirubin 0.4 MG/DL (0.2-1.0) Aspartate Amino Transf (AST/SGOT) 55 U/L (15-37) H Alanine Aminotransferase (ALT/SGPT) 42 U/L (12-78) Alkaline Phosphatase 163 U/L (46-116) H Total Protein 7.0 G/DL (6.4-8.2) Albumin 2.5 G/DL (3.4-5.0) L Globulin 4.5 g/dL Albumin/Globulin Ratio 0.6 (1.0-2.7) L Tacrolimus (Prograf) Level Pending Current Medications Medications (Trade) Dose Ordered Sig/Armond Route PRN Reason Start Time Stop Time Status Last Admin Dose Admin Acetaminophen (Tylenol) 650 mg EVERY 4 HOURS PRN GT Mild Pain/Temp > 100.5 08/30/17 23:30 09/29/17 23:29 08/31/17 05:19 Acyclovir (Zovirax) 400 mg BID GT 08/31/17 11:00 09/30/17 10:59 09/01/17 08:31 Albuterol/ Ipratropium (Albuterol/ Ipratropium) 3 ml Q4H PRN HHN Shortness of Breath 08/30/17 22:00 09/04/17 21:59 Calcitriol (Rocatrol) 0.25 mcg DAILY PEG 08/31/17 10:00 09/30/17 09:59 09/01/17 08:31 Dextrose/Sodium Chloride 1,000 ml @ 200 mls/hr Q5H IV 08/31/17 22:00 09/30/17 21:59 09/01/17 08:32 Fluconazole 50 ml @ 50 mls/hr Q24H IV 08/31/17 11:00 09/07/17 10:59 08/31/17 11:24 Heparin Sodium (Porcine) (Heparin 5000 units/ml) 5,000 units EVERY 12 HOURS SUBQ 08/31/17 09:00 09/30/17 08:59 08/31/17 20:40 Hydrocortisone (Solu-CORTEF) 100 mg EVERY 8 HOURS IV 08/31/17 10:00 09/30/17 09:59 09/01/17 05:50 Levothyroxine Sodium (Synthroid) 75 mcg DAILY GT 08/31/17 11:00 09/30/17 10:59 09/01/17 08:32 Ondansetron HCl (Zofran) 4 mg Q4H PRN IVP Nausea & Vomiting 08/31/17 07:30 09/30/17 07:29 08/31/17 22:11 Pantoprazole (Protonix) 40 mg DAILY IVP 08/31/17 09:00 09/30/17 08:59 09/01/17 08:31 Piperacillin Sod/ Tazobactam Sod 2.25 gm/Dextrose 55 ml @ 110 mls/hr Q8HR IV 08/31/17 14:00 09/05/17 13:59 09/01/17 05:51 Tacrolimus (Prograf) 3 mg EVERY 12 HOURS ORAL 08/31/17 21:00 09/30/17 20:59 09/01/17 08:31 Trimethoprim/ Sulfamethoxazole (Bactrim-DS) 1 tab TWICE A WEEK ORAL 09/02/17 09:00 09/09/17 08:59 Vancomycin HCl (Vanco rx to dose) 1 ea DAILY PRN MISC Per rx protocol 08/30/17 22:00 09/29/17 21:59 Vancomycin/Sodium Chloride 250 ml @ 166.667 mls/hr Q24H IVPB 08/31/17 20:00 09/05/17 19:59 08/31/17 19:54 SARANYA HERNANDEZ Sep 01, 2017 10:50
--- NOTE | 2017-09-01 11:30 | Consultation ---
DATE OF CONSULTATION: 09/01/2017 GASTROENTEROLOGY CONSULTATION CONSULTING PHYSICIAN: Bill Leavitt M.D. CHIEF COMPLAINT: Dysphagia. HISTORY OF PRESENT ILLNESS: Most of the history is per chart. This is a 77-year-old patient with past medical history of cirrhosis, history of transplant in 2017, complicated with respiratory failure. Currently, the patient is on trach. He was brought to the hospital with fever and possible sepsis. PAST MEDICAL HISTORY: 1. History of liver transplant secondary to cirrhosis. 2. History of pituitary adenoma. 3. Diabetes. 4. Renal insufficiency. 5. Respiratory failure, chronic, requiring trach. 6. History of DVT/PE. 7. GERD. 8. History of prostate cancer. PAST SURGICAL HISTORY: 1. Liver transplant in 2017. 2. Pituitary adenoma surgery. 3. Tracheostomy. ALLERGIES: No known allergies. MEDICATIONS: Please see medication reconciliation list. SOCIAL HISTORY: Currently lives in a intermediate. No recent history of tobacco, alcohol, or drug abuse. FAMILY HISTORY: Noncontributory. REVIEW OF SYSTEMS: Unable to obtain. PHYSICAL EXAMINATION: VITAL SIGNS: Temperature is 99.8, pulse is 105, respirations 35, blood pressure is 150/75. HEENT: Normocephalic and atraumatic. Sclerae anicteric. NECK: Supple. No lymphadenopathy. Trach in place. LUNGS: Decreased breath sounds bilaterally and diffuse on supine exam. CARDIOVASCULAR: Tachycardic. Regular rate. Plus S1, S2. ABDOMEN: Positive bowel sounds. Soft, nontender. G-tube in place. No rebound. No guarding. No peritoneal sign. EXTREMITIES: No cyanosis, no clubbing, no edema. LABORATORY DATA: Sodium 133, potassium 4.4, BUN is 37, creatinine is 1.8. Liver function except for alkaline phosphatase of 163, AST of 54, ALT of 42, total bilirubin is 0.4. CBC, white count 16.1, hemoglobin 9.4, hematocrit 25, platelet count is 132,000. ASSESSMENT: This is a 77-year-old male with history of cirrhosis, status post transplant, on Prograf. PLAN: Follow Prograf level. Follow liver function tests. Start tube feeding, Glucerna 1.5, goal of 55. Follow up with the rest of the team including Infectious Disease, Pulmonary, and Cardiology. Bill Leavitt M.D. DR: Cecile JOB#: [id number] CC:
--- NOTE | 2017-09-01 11:33 | Diagnostic Imaging Report ---
Indication: Dyspnea Comparison: None 2 views of the chest obtained. Findings: Patchy groundglass infiltrates demonstrated within the lungs bilaterally. The heart is borderline enlarged. Tracheostomy is present. Bones are slightly osteopenic. IMPRESSION: Patchy bilateral infiltrates. Correlate clinically
--- NOTE | 2017-09-01 12:04 | General Progress Note ---
Assessment/Plan Problem List: (1) Liver transplant status ICD Codes: Z94.4 - Liver transplant status SNOMED: 58141541, 35276300, [id number], [id number] (2) Hyponatremia ICD Codes: E87.1 - Hypo-osmolality and hyponatremia SNOMED: 13123903 (3) Renal failure ICD Codes: N19 - Unspecified kidney failure SNOMED: 13041834 (4) UTI (urinary tract infection) ICD Codes: N39.0 - Urinary tract infection, site not specified SNOMED: 91976377 (5) Pneumonia ICD Codes: J18.9 - Pneumonia, unspecified organism SNOMED: 828648889 (6) Severe sepsis ICD Codes: A41.9 - Sepsis, unspecified organism; R65.20 - Severe sepsis without septic shock SNOMED: 22817687 Status: stable, not improved Assessment/Plan iv abx follow up cultures vent resp rx monitor abg wean as able gt feeds transplant meds- defer to gi ivf monitor renal fxn Subjective ROS Limited/Unobtainable: Yes Constitutional: Reports: malaise, weakness HEENT: Reports: no symptoms Cardiovascular: Reports: no symptoms Respiratory: Reports: cough, shortness of breath, sputum Gastrointestinal/Abdominal: Reports: difficulty swallowing Genitourinary: Reports: no symptoms Neurologic/Psychiatric: Reports: pre-existing deficit Endocrine: Reports: no symptoms Hematologic/Lymphatic: Reports: no symptoms Allergies: Coded Allergies: No Known Allergies (Unverified , 08/30/17) All Systems: reviewed and negative except above Subjective on the vent. poorly responsive at baseline. no fevers. +congestion. wbc trending up. on multiple abx. Objective Last 24 Hour Vital Signs Date Time Temp Pulse Resp B/P (MAP) Pulse Ox O2 Delivery O2 Flow Rate FiO2 09/01/17 10:32 102 31 60 09/01/17 08:47 102 32 70 09/01/17 07:00 105 35 154/75 100 Mechanical Ventilator 80 09/01/17 06:45 104 33 80 09/01/17 06:35 80 09/01/17 06:00 91 27 152/74 100 Mechanical Ventilator 100 09/01/17 05:00 95 34 138/66 100 Mechanical Ventilator 100 09/01/17 04:52 105 31 100 09/01/17 04:34 72 09/01/17 04:00 99.8 106 31 168/81 100 Mechanical Ventilator 100 99.8 09/01/17 03:10 105 29 100 09/01/17 03:00 108 36 150/69 87 Trach Collar 100 09/01/17 02:00 109 35 147/70 88 Trach Collar 100 09/01/17 01:30 T-piece 12.0 100 09/01/17 01:30 92 T-piece 12.0 100 09/01/17 01:00 109 31 150/77 92 Trach Collar 100 09/01/17 00:00 98.7 110 34 147/69 93 Trach Collar 100 98.7 09/01/17 00:00 100 08/31/17 23:29 111 08/31/17 23:00 113 31 146/54 92 Trach Collar 100 08/31/17 22:00 111 33 134/67 91 Trach Collar 100 08/31/17 21:00 112 35 161/80 90 Trach Collar 100 08/31/17 20:24 110 08/31/17 20:04 95 T-piece 12.0 100 08/31/17 20:04 T-piece 12.0 100 08/31/17 20:00 98.0 111 34 152/73 92 Trach Collar 100 98.0 08/31/17 20:00 100 08/31/17 19:00 107 30 147/90 96 Trach Collar 100 08/31/17 18:00 109 32 128/91 97 Trach Collar 100 08/31/17 17:00 108 31 122/95 96 Trach Collar 100 08/31/17 16:00 98.9 112 30 135/85 97 Trach Collar 100 98.9 08/31/17 16:00 112 08/31/17 16:00 100 08/31/17 15:00 111 31 144/89 96 Trach Collar 100 08/31/17 14:14 190/110 08/31/17 14:00 110 32 135/90 97 Trach Collar 100 08/31/17 13:00 108 31 150/95 96 Trach Collar 100 08/31/17 12:50 T-piece 12.0 100 08/31/17 12:50 96 T-piece 12.0 100 Intake and Output 08/31/17 09/01/17 19:00 07:00 Intake Total 800 ml 2210 ml Output Total 150 ml 1310 ml Balance 650 ml 900 ml Intake Oral 0 ml 0 ml IV Total 800 ml 2160 ml Other 50 ml Output Urine Total 150 ml 1310 ml Laboratory Tests 09/01/17 02:36: Arterial Blood pH 7.341L, Arterial Blood Partial Pressure CO2 34.0L, Arterial Blood Partial Pressure O2 57.1L, Arterial Blood HCO3 18.0L, Arterial Blood Oxygen Saturation 86.6L, Arterial Blood Base Excess -7.0, Zia Test Positive 09/01/17 04:18: White Blood Count 16.1H, Red Blood Count 2.88L, Hemoglobin 9.4L, Hematocrit 25.8L, Mean Corpuscular Volume 89, Mean Corpuscular Hemoglobin 32.6H, Mean Corpuscular Hemoglobin Concent 36.5H, Red Cell Distribution Width 13.7, Platelet Count 132L, Mean Platelet Volume 6.2L, Neutrophils (%) (Auto) , Lymphocytes (%) (Auto) , Monocytes (%) (Auto) , Eosinophils (%) (Auto) , Basophils (%) (Auto) , Differential Total Cells Counted 100, Neutrophils % ( Manual) 87H, Lymphocytes % (Manual) 3L, Monocytes % (Manual) 2, Eosinophils % ( Manual) 0, Basophils % (Manual) 0, Band Neutrophils 8, Platelet Estimate DecreasedL, Platelet Morphology Normal, Anisocytosis 1+, Sodium Level 133L, Potassium Level 4.4, Chloride Level 101, Carbon Dioxide Level 20L, Anion Gap 12 , Blood Urea Nitrogen 37H, Creatinine 1.8H, Estimat Glomerular Filtration Rate , Glucose Level 185H, Calcium Level 8.3L, Total Bilirubin 0.4, Aspartate Amino Transf (AST/SGOT) 55H, Alanine Aminotransferase (ALT/SGPT) 42, Alkaline Phosphatase 163H, Total Protein 7.0, Albumin 2.5L, Globulin 4.5, Albumin/ Globulin Ratio 0.6L, Tacrolimus (Prograf) Level [Pending] 09/01/17 08:25: Arterial Blood pH 7.330L, Arterial Blood Partial Pressure CO2 37.0, Arterial Blood Partial Pressure O2 87.8, Arterial Blood HCO3 19.2L, Arterial Blood Oxygen Saturation 96.1, Arterial Blood Base Excess -6.1, Zia Test Positive Height (Feet): 5 Height (Inches): 9.00 Weight (Pounds): 152 General Appearance: WD/WN, lethargic, confused Neck: supple Cardiovascular: normal rate, regular rhythm Respiratory/Chest: chest wall non-tender, rhonchi - bilaterally Abdomen: normal bowel sounds, non tender, soft, no organomegaly Edema: no edema noted Arm (L), no edema noted Arm (R), no edema noted Leg (L), no edema noted Leg (R), no edema noted Pedal (L), no edema noted Pedal (R), no edema noted Generalized Neurologic: unresponsive, aphasia KESHIA WEAVER Sep 01, 2017 12:04
--- NOTE | 2017-09-01 12:35 | Nephrology Progress Note ---
Assessment/Plan Problem List: (1) Coma (2) Cirrhosis (3) Liver transplant recipient (4) SANA (acute kidney injury) (5) Severe sepsis (6) Pneumonia Plan nonoliguric, reduced iv rate, reduce tacrolimus as interaction with diflucan Subjective ROS Limited/Unobtainable: Yes Objective Objective Last 24 Hour Vital Signs Date Time Temp Pulse Resp B/P (MAP) Pulse Ox O2 Delivery O2 Flow Rate FiO2 09/01/17 10:32 102 31 60 09/01/17 08:47 102 32 70 09/01/17 07:00 105 35 154/75 100 Mechanical Ventilator 80 09/01/17 06:45 104 33 80 09/01/17 06:35 80 09/01/17 06:00 91 27 152/74 100 Mechanical Ventilator 100 09/01/17 05:00 95 34 138/66 100 Mechanical Ventilator 100 09/01/17 04:52 105 31 100 09/01/17 04:34 72 09/01/17 04:00 99.8 106 31 168/81 100 Mechanical Ventilator 100 99.8 09/01/17 03:10 105 29 100 09/01/17 03:00 108 36 150/69 87 Trach Collar 100 09/01/17 02:00 109 35 147/70 88 Trach Collar 100 09/01/17 01:30 T-piece 12.0 100 09/01/17 01:30 92 T-piece 12.0 100 09/01/17 01:00 109 31 150/77 92 Trach Collar 100 09/01/17 00:00 98.7 110 34 147/69 93 Trach Collar 100 98.7 09/01/17 00:00 100 08/31/17 23:29 111 08/31/17 23:00 113 31 146/54 92 Trach Collar 100 08/31/17 22:00 111 33 134/67 91 Trach Collar 100 08/31/17 21:00 112 35 161/80 90 Trach Collar 100 08/31/17 20:24 110 08/31/17 20:04 95 T-piece 12.0 100 08/31/17 20:04 T-piece 12.0 100 08/31/17 20:00 98.0 111 34 152/73 92 Trach Collar 100 98.0 08/31/17 20:00 100 08/31/17 19:00 107 30 147/90 96 Trach Collar 100 08/31/17 18:00 109 32 128/91 97 Trach Collar 100 08/31/17 17:00 108 31 122/95 96 Trach Collar 100 08/31/17 16:00 98.9 112 30 135/85 97 Trach Collar 100 98.9 08/31/17 16:00 112 08/31/17 16:00 100 08/31/17 15:00 111 31 144/89 96 Trach Collar 100 08/31/17 14:14 190/110 08/31/17 14:00 110 32 135/90 97 Trach Collar 100 08/31/17 13:00 108 31 150/95 96 Trach Collar 100 08/31/17 12:50 T-piece 12.0 100 08/31/17 12:50 96 T-piece 12.0 100 Intake and Output 08/31/17 09/01/17 19:00 07:00 Intake Total 800 ml 2210 ml Output Total 150 ml 1310 ml Balance 650 ml 900 ml Intake Oral 0 ml 0 ml IV Total 800 ml 2160 ml Other 50 ml Output Urine Total 150 ml 1310 ml Laboratory Tests 09/01/17 02:36: Arterial Blood pH 7.341L, Arterial Blood Partial Pressure CO2 34.0L, Arterial Blood Partial Pressure O2 57.1L, Arterial Blood HCO3 18.0L, Arterial Blood Oxygen Saturation 86.6L, Arterial Blood Base Excess -7.0, Zia Test Positive 09/01/17 04:18: White Blood Count 16.1H, Red Blood Count 2.88L, Hemoglobin 9.4L, Hematocrit 25.8L, Mean Corpuscular Volume 89, Mean Corpuscular Hemoglobin 32.6H, Mean Corpuscular Hemoglobin Concent 36.5H, Red Cell Distribution Width 13.7, Platelet Count 132L, Mean Platelet Volume 6.2L, Neutrophils (%) (Auto) , Lymphocytes (%) (Auto) , Monocytes (%) (Auto) , Eosinophils (%) (Auto) , Basophils (%) (Auto) , Differential Total Cells Counted 100, Neutrophils % ( Manual) 87H, Lymphocytes % (Manual) 3L, Monocytes % (Manual) 2, Eosinophils % ( Manual) 0, Basophils % (Manual) 0, Band Neutrophils 8, Platelet Estimate DecreasedL, Platelet Morphology Normal, Anisocytosis 1+, Sodium Level 133L, Potassium Level 4.4, Chloride Level 101, Carbon Dioxide Level 20L, Anion Gap 12 , Blood Urea Nitrogen 37H, Creatinine 1.8H, Estimat Glomerular Filtration Rate , Glucose Level 185H, Calcium Level 8.3L, Total Bilirubin 0.4, Aspartate Amino Transf (AST/SGOT) 55H, Alanine Aminotransferase (ALT/SGPT) 42, Alkaline Phosphatase 163H, Total Protein 7.0, Albumin 2.5L, Globulin 4.5, Albumin/ Globulin Ratio 0.6L, Tacrolimus (Prograf) Level [Pending] 09/01/17 08:25: Arterial Blood pH 7.330L, Arterial Blood Partial Pressure CO2 37.0, Arterial Blood Partial Pressure O2 87.8, Arterial Blood HCO3 19.2L, Arterial Blood Oxygen Saturation 96.1, Arterial Blood Base Excess -6.1, Zia Test Positive Height (Feet): 5 Height (Inches): 9.00 Weight (Pounds): 152 General Appearance: thin EENT: other - trach Cardiovascular: regular rhythm Respiratory/Chest: crackles/rales Abdomen: non tender Extremities: trace edema Neurologic: unresponsive HARMAN PAYTON Sep 01, 2017 12:35
--- NOTE | 2017-09-01 17:43 | Cardiology Report ---
APPROVED REPORT EKG Measurement Heart [id number] [id number] Normal sinus rhythm Prolonged QT Abnormal ECG
[2017-09-01] MEDS: Vancomycin 750mg/NS 250ml IVPB SCH (19:51)
[2017-09-01] MEDS: Piperacillin/Tazobactam 3.375 GM in D5W 110 ML IVPB SCH (22:14)
[2017-09-02] VITALS (23 sets, daily range): BP systolic 123–177; BP diastolic 54–89
[2017-09-02 04:41] LABS: HEMATOCRIT 23.9 % (42.0-52.0); HEMOGLOBIN 8.5 G/DL (14.2-18.0); MEAN CORPUSCULAR VOLUME 92 FL (80-99); PLATELET COUNT 131 K/UL (150-450); RED BLOOD COUNT 2.61 M/UL (4.70-6.10)
[2017-09-02 04:51] LABS: ALANINE AMINOTRANSFERASE 42 U/L (12-78); ALBUMIN 2.2 G/DL (3.4-5.0); ALBUMIN/GLOBULIN RATIO 0.5 (1.0-2.7); ALKALINE PHOSPHATASE 158 U/L (46-116); ANION GAP 11 mmol/L (5-15); ASPARTATE AMINO TRANSFERASE 63 U/L (15-37); BILIRUBIN,TOTAL 0.3 MG/DL (0.2-1.0); BLOOD UREA NITROGEN 37 mg/dL (7-18); CARBON DIOXIDE 21 MMOL/L (21-32); CHLORIDE 106 MMOL/L (98-107); CREATININE 1.8 MG/DL (0.55-1.30); POTASSIUM 3.7 MMOL/L (3.5-5.1); SODIUM 138 MMOL/L (136-145)
[2017-09-02] MEDS: Hydrocortisone 100mg Inj IV SCH ×3 (06:00→21:48)
[2017-09-02] MEDS: Piperacillin/Tazobactam 3.375 GM in D5W 110 ML IVPB SCH ×3 (06:00→21:48)
--- NOTE | 2017-09-02 07:00 | Progress Note ---
DATE: 09/01/2017 SUBJECTIVE: The patient remains in the intensive care unit. Condition remains critical with guarded prognosis. The patient remains in sinus rhythm. He is on ventilator support. OBJECTIVE: VITAL SIGNS: Blood pressure 154/75, pulse 105, respirations 35, afebrile, T-max 99.8. LUNGS: Coarse breath sounds. Scattered rhonchi. HEART: Regular rhythm and rate. Normal S1, S2. ABDOMEN: Soft. Slightly distended. G-tube intact. EXTREMITIES: With trace dependent edema. LABORATORY AND DIAGNOSTIC DATA: White count 16 and hemoglobin 9.4. Sodium 132, potassium 4.4, bicarbonate 20, BUN 37, and creatinine 1.8. Albumin 2.5. Chest x-ray reveals patchy basilar infiltrates. IMPRESSION: 1. Sepsis with recovered shock. 2. Healthcare-acquired pneumonia. 3. Respiratory failure. 4. History of pulmonary embolus and DVT, resolved. 5. Acute myocardial ischemia. 6. Secondary sinus tachycardia. 7. Adrenocortical insufficiency. PLAN: 1. Off pressors. 2. Taper stress dose steroids. 3. Antimicrobials. 4. Ventilator support. 5. Respiratory hygiene. 6. DVT prophylaxis. 7. Nutrition by feeding tube. Espinoza Salgado M.D. DR: ALPHONSO JOB#: [id number] CC:
[2017-09-02] MEDS: Pantoprazole Inj IVP SCH (08:39)
[2017-09-02] MEDS: Calcitriol 0.25mcg Cap PEG SCH (08:39)
[2017-09-02] MEDS: D5NS 1,000 ML IV SCH (08:39)
[2017-09-02] MEDS: Acyclovir 200mg Cap GT SCH ×2 (08:39→18:36)
[2017-09-02] MEDS: Heparin 5000 units/ml inj SUBQ SCH ×2 (08:41→21:00)
[2017-09-02] MEDS ORDERED: Sodium Bicarbonate 50ml Carp IV ONE (08:45)
--- NOTE | 2017-09-02 08:45 | Critical Care Progress Note ---
Assessment/Plan Assessment/Plan IMPRESSION: 1. Respiratory failure. 2. Evidence of pneumonia. 3. Evidence of fevers- resolved 4. Tachycardia. 5. acute on chronic renal failure. 6. Leukocytosis. +UTI 7. Anemia. 8. Possible sepsis. 9. Severe protein-calorie malnutrition. 10. acute on chronic encephalopathy 11. hypoxemia 12. s/p OLT 13. metabolic acidosis 14. MRSA colonization PLAN care noted and discussed in detail IV antibiotics reviewed bicarb infusion respiratory care as is Ventilatory support for now SNF meds reviewed supportive care suction as needed titrate oxygen therapy monitor labs and cultures prognosis guarded at present transfer to [facility] when bed available medications/laboratory data/nursing notes/ICU care reviewed in detail note reviewed and edited care discussed with RN and RT ICU time spent 38 minutes Critical Care - Subjective Interval Events: care noted tachypneic at present acidemia noted Condition: critical EKG Rhythm: Sinus Tachycardia Residuals: minimal Tube Feeding Tolerated: yes I&O: Intake and Output 09/01/17 09/02/17 19:00 07:00 Intake Total 980 ml 2855 ml Output Total 1310 ml 1075 ml Balance -330 ml 1780 ml Intake Oral 0 ml Free Water 50 ml IV Total 705 ml 2200 ml Tube Feeding 275 ml 605 ml Output Urine Total 1310 ml 1075 ml # Bowel Movements 2 4 Critical Care - Objective CXR: patchy infiltrates Last 24 Hour Vital Signs Date Time Temp Pulse Resp B/P (MAP) Pulse Ox O2 Delivery O2 Flow Rate FiO2 09/02/17 06:49 111 33 60 09/02/17 06:00 112 34 160/70 100 Mechanical Ventilator 60 09/02/17 05:00 110 34 165/89 100 Mechanical Ventilator 60 09/02/17 04:53 110 34 60 09/02/17 04:00 99.9 111 31 167/82 100 Mechanical Ventilator 60 99.9 09/02/17 04:00 60 09/02/17 04:00 115 09/02/17 03:28 113 33 60 09/02/17 03:00 110 31 153/73 100 Mechanical Ventilator 60 09/02/17 02:00 118 35 151/76 100 Mechanical Ventilator 60 09/02/17 01:19 120 38 60 09/02/17 01:00 119 35 154/75 100 Mechanical Ventilator 60 09/02/17 00:00 60 09/02/17 00:00 110 09/02/17 00:00 99.5 112 35 177/77 100 Mechanical Ventilator 60 99.5 09/01/17 23:04 101 24 60 09/01/17 23:00 99.3 108 26 140/58 100 Mechanical Ventilator 60 99.3 09/01/17 22:00 103 31 141/65 100 Mechanical Ventilator 60 09/01/17 21:25 100 26 60 09/01/17 21:00 101 31 133/105 100 Mechanical Ventilator 60 09/01/17 20:00 98.9 102 33 147/66 100 Mechanical Ventilator 60 98.9 09/01/17 20:00 105 09/01/17 20:00 60 09/01/17 19:21 102 31 60 09/01/17 19:00 103 29 111/61 100 Mechanical Ventilator 60 09/01/17 18:00 111 32 117/63 100 Mechanical Ventilator 60 09/01/17 17:00 108 33 120/62 100 Mechanical Ventilator 60 09/01/17 16:59 91 24 60 09/01/17 16:00 60 09/01/17 16:00 108 09/01/17 16:00 98.7 106 30 130/80 98 Mechanical Ventilator 60 98.7 09/01/17 15:00 109 32 108/65 100 Mechanical Ventilator 60 09/01/17 14:38 87 24 60 09/01/17 14:00 112 30 110/62 100 Mechanical Ventilator 60 09/01/17 13:29 103 29 60 09/01/17 13:00 111 32 112/62 100 Mechanical Ventilator 60 09/01/17 12:00 110 09/01/17 12:00 98.7 106 30 144/79 100 Mechanical Ventilator 60 98.7 09/01/17 12:00 60 09/01/17 11:00 109 35 139/81 100 Mechanical Ventilator 70 09/01/17 10:32 102 31 60 09/01/17 10:00 105 33 133/78 100 Mechanical Ventilator 80 09/01/17 09:00 108 35 150/75 100 Mechanical Ventilator 80 09/01/17 08:47 102 32 70 Labs: Laboratory Tests Test 09/01/17 12:50 09/02/17 03:00 09/02/17 04:00 Ammonia < 3 umol/L (11-32) L Tacrolimus (Prograf) Level Pending White Blood Count 17.0 K/UL (4.8-10.8) H Red Blood Count 2.61 M/UL (4.70-6.10) L Hemoglobin 8.5 G/DL (14.2-18.0) L Hematocrit 23.9 % (42.0-52.0) L Mean Corpuscular Volume 92 FL (80-99) Mean Corpuscular Hemoglobin 32.8 PG (27.0-31.0) H Mean Corpuscular Hemoglobin Concent 35.7 G/DL (32.0-36.0) Red Cell Distribution Width 14.0 % (11.6-14.8) Platelet Count 131 K/UL (150-450) L Mean Platelet Volume 5.9 FL (6.5-10.1) L Neutrophils (%) (Auto) % (45.0-75.0) Lymphocytes (%) (Auto) % (20.0-45.0) Monocytes (%) (Auto) % (1.0-10.0) Eosinophils (%) (Auto) % (0.0-3.0) Basophils (%) (Auto) % (0.0-2.0) Neutrophils % (Manual) Pending Lymphocytes % (Manual) Pending Platelet Estimate Pending Platelet Morphology Pending Sodium Level 138 MMOL/L (136-145) Potassium Level 3.7 MMOL/L (3.5-5.1) Chloride Level 106 MMOL/L (98-107) Carbon Dioxide Level 21 MMOL/L (21-32) Anion Gap 11 mmol/L (5-15) Blood Urea Nitrogen 37 mg/dL (7-18) H Creatinine 1.8 MG/DL (0.55-1.30) H Estimat Glomerular Filtration Rate mL/min (>60) Glucose Level 213 MG/DL (74-106) H Calcium Level 8.0 MG/DL (8.5-10.1) L Total Bilirubin 0.3 MG/DL (0.2-1.0) Aspartate Amino Transf (AST/SGOT) 63 U/L (15-37) H Alanine Aminotransferase (ALT/SGPT) 42 U/L (12-78) Alkaline Phosphatase 158 U/L (46-116) H Total Protein 6.4 G/DL (6.4-8.2) Albumin 2.2 G/DL (3.4-5.0) L Globulin 4.2 g/dL Albumin/Globulin Ratio 0.5 (1.0-2.7) L Arterial Blood pH 7.290 (7.350-7.450) Arterial Blood Partial Pressure CO2 40.9 mmHg (35.0-45.0) Arterial Blood Partial Pressure O2 103.9 mmHg (75.0-100.0) H Arterial Blood HCO3 19.3 mmol/L (22.0-26.0) L Arterial Blood Oxygen Saturation 96.9 % (92.0-98.0) Arterial Blood Base Excess -6.7 Zia Test Positive Objective: Tachypneic and poor LOC HEENT: Negative. NECK: Supple. Tracheostomy is in midline. Carotids 2+. LUNGS: scattered rhonchi. Moderate air entry, no wheezes CARDIAC: Normal S1 and S2. RR tachy without murmurs, rubs, or gallops. ABDOMEN: Soft and nontender. No distention. no HSM; GT in place EXTREMITIES: No cyanosis, clubbing, or edema. NEUROLOGICAL: remains withdrawn, lethargic reviewed and edited Micro: Microbiology Date/Time Source Procedure Growth Status 08/30/17 19:40 Blood Blood Culture - Preliminary NO GROWTH AFTER 48 HOURS Resulted 08/30/17 19:30 Blood Blood Culture - Preliminary NO GROWTH AFTER 48 HOURS Resulted 08/31/17 14:30 Sputum Gram Stain Pending Resulted 08/31/17 14:30 Sputum Culture - Preliminary Gram Negative Bacillus 1 Resulted 08/31/17 06:00 Nasal Nares MRSA Culture - Final Staphylococcus Aureus - Mrsa Complete 08/30/17 19:32 Nasal Nares Influenza Types A,B Antigen (SOPHIA) - Final Complete 08/30/17 21:15 Urine,Clean Catch Urine Culture - Preliminary Resulted NORM SCOTT Sep 02, 2017 08:45
[2017-09-02] MEDS ORDERED: Bactrim-DS 1 tab ORAL SCH (09:00)
--- NOTE | 2017-09-02 09:04 | General Progress Note ---
Assessment/Plan Problem List: (1) Liver transplant status ICD Codes: Z94.4 - Liver transplant status SNOMED: 67421578, 64550926, 315592070, 509872332 (2) Hyponatremia ICD Codes: E87.1 - Hypo-osmolality and hyponatremia SNOMED: 22419959 (3) Renal failure ICD Codes: N19 - Unspecified kidney failure SNOMED: 68157654 (4) UTI (urinary tract infection) ICD Codes: N39.0 - Urinary tract infection, site not specified SNOMED: 04978381 (5) Pneumonia ICD Codes: J18.9 - Pneumonia, unspecified organism SNOMED: 511057485 (6) Severe sepsis ICD Codes: A41.9 - Sepsis, unspecified organism; R65.20 - Severe sepsis without septic shock SNOMED: 70067409 Assessment/Plan iv abx follow up cultures- gnr in sputum vent resp rx monitor abg wean as able gt feeds transplant meds- defer to gi ivf monitor renal fxn await bed at [facility]. Subjective ROS Limited/Unobtainable: Yes Constitutional: Reports: malaise, weakness HEENT: Reports: no symptoms Cardiovascular: Reports: no symptoms Respiratory: Reports: shortness of breath, SOB at rest Gastrointestinal/Abdominal: Reports: difficulty swallowing Genitourinary: Reports: no symptoms Neurologic/Psychiatric: Reports: pre-existing deficit Endocrine: Reports: no symptoms Hematologic/Lymphatic: Reports: anemia Allergies: Coded Allergies: No Known Allergies (Unverified , 08/30/17) All Systems: reviewed and negative except above Subjective remains on the vent. poorly responsive. +low grade temps. +congestion Objective Last 24 Hour Vital Signs Date Time Temp Pulse Resp B/P (MAP) Pulse Ox O2 Delivery O2 Flow Rate FiO2 09/02/17 08:47 117 36 60 09/02/17 06:49 111 33 60 09/02/17 06:00 112 34 160/70 100 Mechanical Ventilator 60 09/02/17 05:00 110 34 165/89 100 Mechanical Ventilator 60 09/02/17 04:53 110 34 60 09/02/17 04:00 99.9 111 31 167/82 100 Mechanical Ventilator 60 99.9 09/02/17 04:00 60 09/02/17 04:00 115 09/02/17 03:28 113 33 60 09/02/17 03:00 110 31 153/73 100 Mechanical Ventilator 60 09/02/17 02:00 118 35 151/76 100 Mechanical Ventilator 60 09/02/17 01:19 120 38 60 09/02/17 01:00 119 35 154/75 100 Mechanical Ventilator 60 09/02/17 00:00 60 09/02/17 00:00 110 09/02/17 00:00 99.5 112 35 177/77 100 Mechanical Ventilator 60 99.5 09/01/17 23:04 101 24 60 09/01/17 23:00 99.3 108 26 140/58 100 Mechanical Ventilator 60 99.3 09/01/17 22:00 103 31 141/65 100 Mechanical Ventilator 60 09/01/17 21:25 100 26 60 09/01/17 21:00 101 31 133/105 100 Mechanical Ventilator 60 09/01/17 20:00 98.9 102 33 147/66 100 Mechanical Ventilator 60 98.9 09/01/17 20:00 105 09/01/17 20:00 60 09/01/17 19:21 102 31 60 09/01/17 19:00 103 29 111/61 100 Mechanical Ventilator 60 09/01/17 18:00 111 32 117/63 100 Mechanical Ventilator 60 09/01/17 17:00 108 33 120/62 100 Mechanical Ventilator 60 09/01/17 16:59 91 24 60 09/01/17 16:00 60 09/01/17 16:00 108 09/01/17 16:00 98.7 106 30 130/80 98 Mechanical Ventilator 60 98.7 09/01/17 15:00 109 32 108/65 100 Mechanical Ventilator 60 09/01/17 14:38 87 24 60 09/01/17 14:00 112 30 110/62 100 Mechanical Ventilator 60 09/01/17 13:29 103 29 60 09/01/17 13:00 111 32 112/62 100 Mechanical Ventilator 60 09/01/17 12:00 110 09/01/17 12:00 98.7 106 30 144/79 100 Mechanical Ventilator 60 98.7 09/01/17 12:00 60 09/01/17 11:00 109 35 139/81 100 Mechanical Ventilator 70 09/01/17 10:32 102 31 60 09/01/17 10:00 105 33 133/78 100 Mechanical Ventilator 80 09/01/17 09:00 108 35 150/75 100 Mechanical Ventilator 80 Intake and Output 09/01/17 09/02/17 19:00 07:00 Intake Total 980 ml 2855 ml Output Total 1310 ml 1075 ml Balance -330 ml 1780 ml Intake Oral 0 ml Free Water 50 ml IV Total 705 ml 2200 ml Tube Feeding 275 ml 605 ml Output Urine Total 1310 ml 1075 ml # Bowel Movements 2 4 Laboratory Tests 09/01/17 12:50: Ammonia < 3L, Tacrolimus (Prograf) Level [Pending] 09/02/17 03:00: White Blood Count 17.0H, Red Blood Count 2.61L, Hemoglobin 8.5L, Hematocrit 23.9L, Mean Corpuscular Volume 92, Mean Corpuscular Hemoglobin 32.8H, Mean Corpuscular Hemoglobin Concent 35.7, Red Cell Distribution Width 14.0, Platelet Count 131L, Mean Platelet Volume 5.9L, Neutrophils (%) (Auto) , Lymphocytes (%) (Auto) , Monocytes (%) (Auto) , Eosinophils (%) (Auto) , Basophils (%) (Auto) , Neutrophils % (Manual) [Pending], Lymphocytes % (Manual) [Pending], Platelet Estimate [Pending], Platelet Morphology [Pending], Sodium Level 138, Potassium Level 3.7, Chloride Level 106, Carbon Dioxide Level 21, Anion Gap 11, Blood Urea Nitrogen 37H, Creatinine 1.8H, Estimat Glomerular Filtration Rate , Glucose Level 213H, Calcium Level 8.0L, Total Bilirubin 0.3, Aspartate Amino Transf (AST/SGOT) 63H, Alanine Aminotransferase (ALT/SGPT) 42, Alkaline Phosphatase 158H, Total Protein 6.4, Albumin 2.2L, Globulin 4.2, Albumin/ Globulin Ratio 0.5L 09/02/17 04:00: Arterial Blood pH 7.290L, Arterial Blood Partial Pressure CO2 40.9, Arterial Blood Partial Pressure O2 103.9H, Arterial Blood HCO3 19.3L, Arterial Blood Oxygen Saturation 96.9, Arterial Blood Base Excess -6.7, Zia Test Positive Height (Feet): 5 Height (Inches): 9.00 Weight (Pounds): 140 General Appearance: WD/WN, lethargic, confused Neck: supple Cardiovascular: normal peripheral pulses, normal rate, regular rhythm Respiratory/Chest: rhonchi - bilaterally Abdomen: normal bowel sounds, non tender, soft, no organomegaly Neurologic: unresponsive KESHIA WEAVER Sep 02, 2017 09:04
--- NOTE | 2017-09-02 11:20 | General Progress Note ---
Assessment/Plan Assessment/Plan Assessment - Cryptogenic cirrhosis - hepatopulmonary syndrome - s/p OLT 03/16/17 [facility] - Resp failure --> s/p trach and PEG - sepsis - rising WBC on stress dose steroids - anemia - azotemia Recommendations - f/u Tacrolimus levels - Prograf dose reduced due to Diflucan - broad spect abx - TF as tolerated - PPI - pulmonary toilet - elevate HOB - follow labs Subjective Allergies: Coded Allergies: No Known Allergies (Unverified , 08/30/17) Subjective above noted patient non verbal discussed with son at bedside and with renal Objective Last 24 Hour Vital Signs Date Time Temp Pulse Resp B/P (MAP) Pulse Ox O2 Delivery O2 Flow Rate FiO2 09/02/17 10:48 113 34 60 09/02/17 10:00 111 32 144/67 100 Mechanical Ventilator 60 09/02/17 09:00 113 34 139/60 100 Mechanical Ventilator 60 09/02/17 08:47 117 36 60 09/02/17 08:00 112 09/02/17 08:00 60 09/02/17 08:00 98.7 112 27 146/58 100 Mechanical Ventilator 60 98.7 09/02/17 06:49 111 33 60 09/02/17 06:00 112 34 160/70 100 Mechanical Ventilator 60 09/02/17 05:00 110 34 165/89 100 Mechanical Ventilator 60 09/02/17 04:53 110 34 60 09/02/17 04:00 99.9 111 31 167/82 100 Mechanical Ventilator 60 99.9 09/02/17 04:00 60 09/02/17 04:00 115 09/02/17 03:28 113 33 60 09/02/17 03:00 110 31 153/73 100 Mechanical Ventilator 60 09/02/17 02:00 118 35 151/76 100 Mechanical Ventilator 60 09/02/17 01:19 120 38 60 09/02/17 01:00 119 35 154/75 100 Mechanical Ventilator 60 09/02/17 00:00 60 09/02/17 00:00 110 09/02/17 00:00 99.5 112 35 177/77 100 Mechanical Ventilator 60 99.5 09/01/17 23:04 101 24 60 09/01/17 23:00 99.3 108 26 140/58 100 Mechanical Ventilator 60 99.3 4/29/18 22:00 103 31 141/65 100 Mechanical Ventilator 60 09/01/17 21:25 100 26 60 09/01/17 21:00 101 31 133/105 100 Mechanical Ventilator 60 09/01/17 20:00 98.9 102 33 147/66 100 Mechanical Ventilator 60 98.9 09/01/17 20:00 105 09/01/17 20:00 60 09/01/17 19:21 102 31 60 09/01/17 19:00 103 29 111/61 100 Mechanical Ventilator 60 09/01/17 18:00 111 32 117/63 100 Mechanical Ventilator 60 09/01/17 17:00 108 33 120/62 100 Mechanical Ventilator 60 09/01/17 16:59 91 24 60 09/01/17 16:00 60 09/01/17 16:00 108 09/01/17 16:00 98.7 106 30 130/80 98 Mechanical Ventilator 60 98.7 09/01/17 15:00 109 32 108/65 100 Mechanical Ventilator 60 09/01/17 14:38 87 24 60 09/01/17 14:00 112 30 110/62 100 Mechanical Ventilator 60 09/01/17 13:29 103 29 60 09/01/17 13:00 111 32 112/62 100 Mechanical Ventilator 60 09/01/17 12:00 110 09/01/17 12:00 98.7 106 30 144/79 100 Mechanical Ventilator 60 98.7 09/01/17 12:00 60 Intake and Output 09/01/17 09/02/17 19:00 07:00 Intake Total 980 ml 2855 ml Output Total 1310 ml 1075 ml Balance -330 ml 1780 ml Intake Oral 0 ml Free Water 50 ml IV Total 705 ml 2200 ml Tube Feeding 275 ml 605 ml Output Urine Total 1310 ml 1075 ml # Bowel Movements 2 4 Laboratory Tests 09/01/17 12:50: Ammonia < 3L, Tacrolimus (Prograf) Level [Pending] 09/02/17 03:00: White Blood Count 17.0H, Red Blood Count 2.61L, Hemoglobin 8.5L, Hematocrit 23.9L, Mean Corpuscular Volume 92, Mean Corpuscular Hemoglobin 32.8H, Mean Corpuscular Hemoglobin Concent 35.7, Red Cell Distribution Width 14.0, Platelet Count 131L, Mean Platelet Volume 5.9L, Neutrophils (%) (Auto) , Lymphocytes (%) (Auto) , Monocytes (%) (Auto) , Eosinophils (%) (Auto) , Basophils (%) (Auto) , Differential Total Cells Counted 100, Neutrophils % (Manual) 77H, Lymphocytes % (Manual) 7L, Monocytes % (Manual) 2, Eosinophils % (Manual) 0, Basophils % ( Manual) 0, Band Neutrophils 14H, Platelet Estimate DecreasedL, Platelet Morphology Normal, Hypochromasia 1+, Anisocytosis 1+, Sodium Level 138, Potassium Level 3.7, Chloride Level 106, Carbon Dioxide Level 21, Anion Gap 11, Blood Urea Nitrogen 37H, Creatinine 1.8H, Estimat Glomerular Filtration Rate , Glucose Level 213H, Calcium Level 8.0L, Total Bilirubin 0.3, Aspartate Amino Transf (AST/SGOT) 63H, Alanine Aminotransferase (ALT/SGPT) 42, Alkaline Phosphatase 158H, Total Protein 6.4, Albumin 2.2L, Globulin 4.2, Albumin/ Globulin Ratio 0.5L 09/02/17 04:00: Arterial Blood pH 7.290L, Arterial Blood Partial Pressure CO2 40.9, Arterial Blood Partial Pressure O2 103.9H, Arterial Blood HCO3 19.3L, Arterial Blood Oxygen Saturation 96.9, Arterial Blood Base Excess -6.7, Zia Test Positive Height (Feet): 5 Height (Inches): 9.00 Weight (Pounds): 140 Objective Thin man NCAT Neck (+) trach CTA RRR Soft Flat, (+) GT no edema obtunded QUITA LAURENT Sep 02, 2017 11:20
--- NOTE | 2017-09-02 11:52 | Infectious Diseases Prog Note ---
Assessment/Plan Assessment/Plan antibiotics : vancomycin iv, zosyn, acyclovir, bactrim, fluconazole A 1. gram negative pneumonia 2. s/p liver transplant 3. renal failure 4. respiratory failure 5. 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 continue zosyn 2. d/c vancomycin 3. continue acyclovir, bactrim, fluconazole Subjective ROS Limited/Unobtainable: Yes Allergies: Coded Allergies: No Known Allergies (Unverified , 08/30/17) Objective Vital Signs Last 24 Hour Vital Signs Date Time Temp Pulse Resp B/P (MAP) Pulse Ox O2 Delivery O2 Flow Rate FiO2 09/02/17 11:00 109 37 159/79 99 Mechanical Ventilator 60 09/02/17 10:48 113 34 60 09/02/17 10:00 111 32 144/67 100 Mechanical Ventilator 60 09/02/17 09:00 113 34 139/60 100 Mechanical Ventilator 60 09/02/17 08:47 117 36 60 09/02/17 08:00 112 09/02/17 08:00 60 09/02/17 08:00 98.7 112 27 146/58 100 Mechanical Ventilator 60 98.7 09/02/17 06:49 111 33 60 09/02/17 06:00 112 34 160/70 100 Mechanical Ventilator 60 09/02/17 05:00 110 34 165/89 100 Mechanical Ventilator 60 09/02/17 04:53 110 34 60 09/02/17 04:00 99.9 111 31 167/82 100 Mechanical Ventilator 60 99.9 09/02/17 04:00 60 09/02/17 04:00 115 09/02/17 03:28 113 33 60 09/02/17 03:00 110 31 153/73 100 Mechanical Ventilator 60 09/02/17 02:00 118 35 151/76 100 Mechanical Ventilator 60 09/02/17 01:19 120 38 60 09/02/17 01:00 119 35 154/75 100 Mechanical Ventilator 60 09/02/17 00:00 60 09/02/17 00:00 110 09/02/17 00:00 99.5 112 35 177/77 100 Mechanical Ventilator 60 99.5 09/01/17 23:04 101 24 60 09/01/17 23:00 99.3 108 26 140/58 100 Mechanical Ventilator 60 99.3 09/01/17 22:00 103 31 141/65 100 Mechanical Ventilator 60 09/01/17 21:25 100 26 60 09/01/17 21:00 101 31 133/105 100 Mechanical Ventilator 60 09/01/17 20:00 98.9 102 33 147/66 100 Mechanical Ventilator 60 98.9 09/01/17 20:00 105 09/01/17 20:00 60 09/01/17 19:21 102 31 60 09/01/17 19:00 103 29 111/61 100 Mechanical Ventilator 60 09/01/17 18:00 111 32 117/63 100 Mechanical Ventilator 60 09/01/17 17:00 108 33 120/62 100 Mechanical Ventilator 60 09/01/17 16:59 91 24 60 09/01/17 16:00 60 09/01/17 16:00 108 09/01/17 16:00 98.7 106 30 130/80 98 Mechanical Ventilator 60 98.7 09/01/17 15:00 109 32 108/65 100 Mechanical Ventilator 60 09/01/17 14:38 87 24 60 09/01/17 14:00 112 30 110/62 100 Mechanical Ventilator 60 09/01/17 13:29 103 29 60 09/01/17 13:00 111 32 112/62 100 Mechanical Ventilator 60 09/01/17 12:00 110 09/01/17 12:00 98.7 106 30 144/79 100 Mechanical Ventilator 60 98.7 09/01/17 12:00 60 Height (Feet): 5 Height (Inches): 9.00 Weight (Pounds): 140 HEENT: status post trach Respiratory/Chest: crackles/rales Cardiovascular: normal rate, regular rhythm, no gallop/murmur Abdomen: soft, non tender, other - GT Extremities: no edema Microbiology Date/Time Source Procedure Growth Status 08/30/17 19:40 Blood Blood Culture - Preliminary NO GROWTH AFTER 48 HOURS Resulted 08/30/17 19:30 Blood Blood Culture - Preliminary NO GROWTH AFTER 48 HOURS Resulted 08/31/17 14:30 Sputum Gram Stain - Final Resulted 08/31/17 14:30 Sputum Culture - Preliminary Gram Negative Bacillus 1 Resulted 08/31/17 06:00 Nasal Nares MRSA Culture - Final Staphylococcus Aureus - Mrsa Complete 08/30/17 19:32 Nasal Nares Influenza Types A,B Antigen (SOPHIA) - Final Complete 08/30/17 21:15 Urine,Clean Catch Urine Culture - Preliminary Resulted 08/31/17 06:00 Rectum VRE Culture - Final Enterococcus Faecium - Vre Complete Laboratory Tests Test 09/01/17 12:50 09/02/17 03:00 09/02/17 04:00 Ammonia < 3 umol/L (11-32) L Tacrolimus (Prograf) Level Pending White Blood Count 17.0 K/UL (4.8-10.8) H Red Blood Count 2.61 M/UL (4.70-6.10) L Hemoglobin 8.5 G/DL (14.2-18.0) L Hematocrit 23.9 % (42.0-52.0) L Mean Corpuscular Volume 92 FL (80-99) Mean Corpuscular Hemoglobin 32.8 PG (27.0-31.0) H Mean Corpuscular Hemoglobin Concent 35.7 G/DL (32.0-36.0) Red Cell Distribution Width 14.0 % (11.6-14.8) Platelet Count 131 K/UL (150-450) L Mean Platelet Volume 5.9 FL (6.5-10.1) L Neutrophils (%) (Auto) % (45.0-75.0) Lymphocytes (%) (Auto) % (20.0-45.0) Monocytes (%) (Auto) % (1.0-10.0) Eosinophils (%) (Auto) % (0.0-3.0) Basophils (%) (Auto) % (0.0-2.0) Differential Total Cells Counted 100 Neutrophils % (Manual) 77 % (45-75) H Lymphocytes % (Manual) 7 % (20-45) L Monocytes % (Manual) 2 % (1-10) Eosinophils % (Manual) 0 % (0-3) Basophils % (Manual) 0 % (0-2) Band Neutrophils 14 % (0-8) H Platelet Estimate Decreased L Platelet Morphology Normal Hypochromasia 1+ Anisocytosis 1+ Sodium Level 138 MMOL/L (136-145) Potassium Level 3.7 MMOL/L (3.5-5.1) Chloride Level 106 MMOL/L (98-107) Carbon Dioxide Level 21 MMOL/L (21-32) Anion Gap 11 mmol/L (5-15) Blood Urea Nitrogen 37 mg/dL (7-18) H Creatinine 1.8 MG/DL (0.55-1.30) H Estimat Glomerular Filtration Rate mL/min (>60) Glucose Level 213 MG/DL (74-106) H Calcium Level 8.0 MG/DL (8.5-10.1) L Total Bilirubin 0.3 MG/DL (0.2-1.0) Aspartate Amino Transf (AST/SGOT) 63 U/L (15-37) H Alanine Aminotransferase (ALT/SGPT) 42 U/L (12-78) Alkaline Phosphatase 158 U/L (46-116) H Total Protein 6.4 G/DL (6.4-8.2) Albumin 2.2 G/DL (3.4-5.0) L Globulin 4.2 g/dL Albumin/Globulin Ratio 0.5 (1.0-2.7) L Arterial Blood pH 7.290 (7.350-7.450) Arterial Blood Partial Pressure CO2 40.9 mmHg (35.0-45.0) Arterial Blood Partial Pressure O2 103.9 mmHg (75.0-100.0) H Arterial Blood HCO3 19.3 mmol/L (22.0-26.0) L Arterial Blood Oxygen Saturation 96.9 % (92.0-98.0) Arterial Blood Base Excess -6.7 Zia Test Positive Current Medications Medications (Trade) Dose Ordered Sig/Armond Route PRN Reason Start Time Stop Time Status Last Admin Dose Admin Acetaminophen (Tylenol) 650 mg EVERY 4 HOURS PRN GT Mild Pain/Temp > 100.5 08/30/17 23:30 09/29/17 23:29 08/31/17 05:19 Acyclovir (Zovirax) 400 mg BID GT 08/31/17 11:00 09/30/17 10:59 09/02/17 08:39 Albuterol/ Ipratropium (Albuterol/ Ipratropium) 3 ml Q4H PRN HHN Shortness of Breath 08/30/17 22:00 09/04/17 21:59 Calcitriol (Rocatrol) 0.25 mcg DAILY PEG 08/31/17 10:00 09/30/17 09:59 09/02/17 08:39 Dextrose/Sodium Chloride 1,000 ml @ 100 mls/hr Q10H IV 09/01/17 13:00 10/01/17 12:59 09/02/17 08:39 Fluconazole 50 ml @ 50 mls/hr Q24H IV 08/31/17 11:00 09/07/17 10:59 09/02/17 10:42 Heparin Sodium (Porcine) (Heparin 5000 units/ml) 5,000 units EVERY 12 HOURS SUBQ 08/31/17 09:00 09/30/17 08:59 09/01/17 20:48 Hydrocortisone (Solu-CORTEF) 50 mg EVERY 8 HOURS IV 09/02/17 14:00 10/02/17 13:59 UNV Levothyroxine Sodium (Synthroid) 75 mcg DAILY GT 08/31/17 11:00 09/30/17 10:59 09/02/17 08:57 Ondansetron HCl (Zofran) 4 mg Q4H PRN IVP Nausea & Vomiting 08/31/17 07:30 09/30/17 07:29 08/31/17 22:11 Pantoprazole (Protonix) 40 mg DAILY IVP 08/31/17 09:00 09/30/17 08:59 09/02/17 08:39 Piperacillin Sod/ Tazobactam Sod 3.375 gm/Dextrose 110 ml @ 27.5 mls/hr Q8HR IVPB 09/01/17 22:00 09/08/17 21:59 09/02/17 06:00 Tacrolimus (Prograf) 2 mg EVERY 12 HOURS ORAL 09/01/17 21:00 10/01/17 20:59 09/02/17 08:38 Trimethoprim/ Sulfamethoxazole (Bactrim-DS) 1 tab TWICE A WEEK ORAL 09/02/17 09:00 09/09/17 08:59 09/02/17 08:58 Vancomycin HCl (Vanco rx to dose) 1 ea DAILY PRN MISC Per rx protocol 08/30/17 22:00 09/29/17 21:59 Vancomycin/Sodium Chloride 250 ml @ 166.667 mls/hr Q24H IVPB 08/31/17 20:00 09/05/17 19:59 09/01/17 19:51 ELY DAVIS Sep 02, 2017 11:52
--- NOTE | 2017-09-02 13:16 | General Progress Note ---
Assessment/Plan Problem List: (1) Coma ICD Codes: R40.20 - Unspecified coma SNOMED: 113077274 (2) Cirrhosis ICD Codes: K74.60 - Unspecified cirrhosis of liver SNOMED: 69655793 (3) Liver transplant recipient ICD Codes: Z94.4 - Liver transplant status SNOMED: 422511826 (4) SANA (acute kidney injury) ICD Codes: N17.9 - Acute kidney failure, unspecified SNOMED: 55129675 (5) Severe sepsis ICD Codes: A41.9 - Sepsis, unspecified organism; R65.20 - Severe sepsis without septic shock SNOMED: 32760378 (6) Pneumonia ICD Codes: J18.9 - Pneumonia, unspecified organism SNOMED: 059546165 Assessment/Plan sana, lab stable await tacrolimus levels, remains comatose Subjective ROS Limited/Unobtainable: Yes Allergies: Coded Allergies: No Known Allergies (Unverified , 08/30/17) Objective Last 24 Hour Vital Signs Date Time Temp Pulse Resp B/P (MAP) Pulse Ox O2 Delivery O2 Flow Rate FiO2 09/02/17 13:00 110 23 163/75 100 Mechanical Ventilator 50 09/02/17 12:59 110 32 50 09/02/17 12:00 60 09/02/17 12:00 97.0 111 34 174/69 100 Mechanical Ventilator 60 97.0 09/02/17 11:00 109 37 159/79 99 Mechanical Ventilator 60 09/02/17 10:48 113 34 60 09/02/17 10:00 111 32 144/67 100 Mechanical Ventilator 60 09/02/17 09:00 113 34 139/60 100 Mechanical Ventilator 60 09/02/17 08:47 117 36 60 09/02/17 08:00 112 09/02/17 08:00 60 09/02/17 08:00 98.7 112 27 146/58 100 Mechanical Ventilator 60 98.7 09/02/17 06:49 111 33 60 09/02/17 06:00 112 34 160/70 100 Mechanical Ventilator 60 09/02/17 05:00 110 34 165/89 100 Mechanical Ventilator 60 09/02/17 04:53 110 34 60 09/02/17 04:00 99.9 111 31 167/82 100 Mechanical Ventilator 60 99.9 09/02/17 04:00 60 09/02/17 04:00 115 09/02/17 03:28 113 33 60 09/02/17 03:00 110 31 153/73 100 Mechanical Ventilator 60 09/02/17 02:00 118 35 151/76 100 Mechanical Ventilator 60 09/02/17 01:19 120 38 60 09/02/17 01:00 119 35 154/75 100 Mechanical Ventilator 60 09/02/17 00:00 60 09/02/17 00:00 110 09/02/17 00:00 99.5 112 35 177/77 100 Mechanical Ventilator 60 99.5 09/01/17 23:04 101 24 60 09/01/17 23:00 99.3 108 26 140/58 100 Mechanical Ventilator 60 99.3 09/01/17 22:00 103 31 141/65 100 Mechanical Ventilator 60 09/01/17 21:25 100 26 60 09/01/17 21:00 101 31 133/105 100 Mechanical Ventilator 60 09/01/17 20:00 98.9 102 33 147/66 100 Mechanical Ventilator 60 98.9 09/01/17 20:00 105 09/01/17 20:00 60 09/01/17 19:21 102 31 60 09/01/17 19:00 103 29 111/61 100 Mechanical Ventilator 60 09/01/17 18:00 111 32 117/63 100 Mechanical Ventilator 60 09/01/17 17:00 108 33 120/62 100 Mechanical Ventilator 60 09/01/17 16:59 91 24 60 09/01/17 16:00 60 09/01/17 16:00 108 09/01/17 16:00 98.7 106 30 130/80 98 Mechanical Ventilator 60 98.7 09/01/17 15:00 109 32 108/65 100 Mechanical Ventilator 60 09/01/17 14:38 87 24 60 09/01/17 14:00 112 30 110/62 100 Mechanical Ventilator 60 09/01/17 13:29 103 29 60 Intake and Output 09/01/17 09/02/17 19:00 07:00 Intake Total 980 ml 2882.5 ml Output Total 1310 ml 1075 ml Balance -330 ml 1807.5 ml Intake Oral 0 ml Free Water 50 ml IV Total 705 ml 2227.5 ml Tube Feeding 275 ml 605 ml Output Urine Total 1310 ml 1075 ml # Bowel Movements 2 4 Laboratory Tests 09/02/17 03:00: White Blood Count 17.0H, Red Blood Count 2.61L, Hemoglobin 8.5L, Hematocrit 23.9L, Mean Corpuscular Volume 92, Mean Corpuscular Hemoglobin 32.8H, Mean Corpuscular Hemoglobin Concent 35.7, Red Cell Distribution Width 14.0, Platelet Count 131L, Mean Platelet Volume 5.9L, Neutrophils (%) (Auto) , Lymphocytes (%) (Auto) , Monocytes (%) (Auto) , Eosinophils (%) (Auto) , Basophils (%) (Auto) , Differential Total Cells Counted 100, Neutrophils % (Manual) 77H, Lymphocytes % (Manual) 7L, Monocytes % (Manual) 2, Eosinophils % (Manual) 0, Basophils % ( Manual) 0, Band Neutrophils 14H, Platelet Estimate DecreasedL, Platelet Morphology Normal, Hypochromasia 1+, Anisocytosis 1+, Sodium Level 138, Potassium Level 3.7, Chloride Level 106, Carbon Dioxide Level 21, Anion Gap 11, Blood Urea Nitrogen 37H, Creatinine 1.8H, Estimat Glomerular Filtration Rate , Glucose Level 213H, Calcium Level 8.0L, Total Bilirubin 0.3, Aspartate Amino Transf (AST/SGOT) 63H, Alanine Aminotransferase (ALT/SGPT) 42, Alkaline Phosphatase 158H, Total Protein 6.4, Albumin 2.2L, Globulin 4.2, Albumin/ Globulin Ratio 0.5L 09/02/17 04:00: Arterial Blood pH 7.290L, Arterial Blood Partial Pressure CO2 40.9, Arterial Blood Partial Pressure O2 103.9H, Arterial Blood HCO3 19.3L, Arterial Blood Oxygen Saturation 96.9, Arterial Blood Base Excess -6.7, Zia Test Positive Height (Feet): 5 Height (Inches): 9.00 Weight (Pounds): 140 EENT: normal ENT inspection Neck: other - trach Cardiovascular: normal rate Respiratory/Chest: rhonchi - bilaterally Abdomen: non tender, soft Pelvis: tender uterus Edema: mild edema Neurologic: unresponsive HARMAN PAYTON Sep 02, 2017 13:16
--- NOTE | 2017-09-02 19:30 | Progress Note ---
DATE: 09/02/2017 CARDIOLOGY PROGRESS NOTE SUBJECTIVE: The patient's condition remains critical. Prognosis guarded. He remains in the intensive care unit. He is unresponsive. OBJECTIVE: VITAL SIGNS: Blood pressure 163/75, pulse 110, respirations 23, and afebrile. LUNGS: Coarse breath sounds. Scattered rhonchi. HEART: Regular rhythm and rate. Normal S1, S2. ABDOMEN: Soft. EXTREMITIES: Trace edema. LABORATORY DATA: White count 17 and hemoglobin 8.5. Sodium 138, potassium 3.7, BUN 37, and creatinine 1.8. Bicarb 21. Albumin 2.2. IMPRESSION: 1. Status post liver transplant. 2. Acute on chronic renal failure. 3. Sepsis with shock, recovered. 4. Pneumonia. 5. Respiratory failure. 6. Metabolic and toxic encephalopathies. 7. History of pulmonary embolus due to deep venous thrombosis. 8. Secondary sinus tachycardia. 9. Hypertensive heart disease with rising blood pressure trend. 10. Acute myocardial ischemia, resolved. 11. Adrenocortical insufficiency. PLAN: 1. No need for pressors. 2. Adjust antihypertensive. 3. Taper off steroids. 4. Nutrition by feeding tube. 5. Ventilator support. 6. Antimicrobials per Infectious Disease quality improvement consultant. Espinoza Salgado M.D. DR: JACK JOB#: [id number] CC:
--- NOTE | 2017-09-02 20:38 | Wound Care Consultation ---
Wound Assessment Wound Assessment : Wound Number: 1 Wound Present on Admission: Yes New Wound: No Status Change of Wound: No Wound Location Body Site Modif: left Wound Location Body Site: sacral - extending to left buttock Wound Type: pressure ulcer Zohaib Test: Does not Zohaib Pressure Ulcer Stage: Deep Tissue Injury Wound Thickness: Full Thickness Wound Length: 6.5 Wound Width: 5.5 Wound Depth: utd Percent of Wound Purple/Maroon: 100 Wound Drainage Amount: None Wound Drainage Odor: None/Absent Tissue Surrounding Wound: Erythemic Wound General Appearance: Reddened - maroon/purple Wound Comment #1 Left sacrococcygeal area extending to left buttock Recommendation -Local wound care per protocol -Keep clean and dry -Optimize nutrition -Low air loss mattress -Assess and f/u accordingly for any changes BRADLEY CHERY RN Sep 02, 2017 20:38
[2017-09-02] MEDS: Metoprolol 25mg tab ORAL SCH (21:00)
[2017-09-03] VITALS (16 sets, daily range): BP systolic 98–158; BP diastolic 44–74
[2017-09-03 05:19] LABS: HEMATOCRIT 20.3 % (42.0-52.0); HEMOGLOBIN 7.3 G/DL (14.2-18.0); MEAN CORPUSCULAR VOLUME 90 FL (80-99); PLATELET COUNT 87 K/UL (150-450); RED BLOOD COUNT 2.26 M/UL (4.70-6.10); RED CELL DISTRIBUTION WIDTH 14.3 % (11.6-14.8); WHITE BLOOD COUNT 11.9 K/UL (4.8-10.8)
[2017-09-03 05:40] LABS: ALANINE AMINOTRANSFERASE 35 U/L (12-78); ALBUMIN 1.9 G/DL (3.4-5.0); ALBUMIN/GLOBULIN RATIO 0.5 (1.0-2.7); ALKALINE PHOSPHATASE 152 U/L (46-116); ANION GAP 11 mmol/L (5-15); ASPARTATE AMINO TRANSFERASE 42 U/L (15-37); BILIRUBIN,TOTAL 0.2 MG/DL (0.2-1.0); BLOOD UREA NITROGEN 35 mg/dL (7-18); CALCIUM 8.1 MG/DL (8.5-10.1); CARBON DIOXIDE 22 MMOL/L (21-32); CHLORIDE 112 MMOL/L (98-107); CREATININE 1.4 MG/DL (0.55-1.30); SODIUM 145 MMOL/L (136-145)
[2017-09-03] MEDS: Piperacillin/Tazobactam 3.375 GM in D5W 110 ML IVPB SCH (05:55)
[2017-09-03] MEDS: Hydrocortisone 100mg Inj IV SCH (05:55)
[2017-09-03 06:22] LABS: POTASSIUM 2.7 MMOL/L (3.5-5.1)
--- NOTE | 2017-09-03 08:12 | General Progress Note ---
Assessment/Plan Problem List: (1) Liver transplant status ICD Codes: Z94.4 - Liver transplant status SNOMED: 92560437, 73234500, 573763874, 792721974 (2) Hyponatremia ICD Codes: E87.1 - Hypo-osmolality and hyponatremia SNOMED: 83600706 (3) Renal failure ICD Codes: N19 - Unspecified kidney failure SNOMED: 05015310 (4) UTI (urinary tract infection) ICD Codes: N39.0 - Urinary tract infection, site not specified SNOMED: 07804799 (5) Pneumonia ICD Codes: J18.9 - Pneumonia, unspecified organism SNOMED: 180764261 (6) Severe sepsis ICD Codes: A41.9 - Sepsis, unspecified organism; R65.20 - Severe sepsis without septic shock SNOMED: 12359260 Status: stable, progressing Assessment/Plan iv abx follow up cultures- gnr in sputum vent resp rx monitor abg wean as able gt feeds transplant meds- defer to gi ivf monitor renal fxn transfuse check stool ob and iron panel [facility] declined transfer due to insurance problems Subjective ROS Limited/Unobtainable: Yes Constitutional: Reports: malaise, weakness HEENT: Reports: no symptoms Respiratory: Reports: shortness of breath, sputum Gastrointestinal/Abdominal: Reports: difficulty swallowing Genitourinary: Reports: no symptoms Neurologic/Psychiatric: Reports: pre-existing deficit Endocrine: Reports: no symptoms Hematologic/Lymphatic: Reports: anemia Allergies: Coded Allergies: No Known Allergies (Unverified , 08/30/17) All Systems: reviewed and negative except above Subjective remains on the vent. poorly responsive. less congested. wbc and renal fxn improving. no fevers. no bleeding noted. Objective Last 24 Hour Vital Signs Date Time Temp Pulse Resp B/P (MAP) Pulse Ox O2 Delivery O2 Flow Rate FiO2 09/03/17 07:12 75 18 50 09/03/17 07:00 74 22 140/57 100 Mechanical Ventilator 50 09/03/17 06:00 78 29 149/67 100 Mechanical Ventilator 50 09/03/17 05:04 78 27 50 09/03/17 05:00 80 26 101/53 100 Mechanical Ventilator 50 09/03/17 04:00 99.2 72 24 103/53 100 Mechanical Ventilator 50 99.2 09/03/17 04:00 50 09/03/17 04:00 89 09/03/17 03:00 80 24 136/44 100 Mechanical Ventilator 50 09/03/17 02:55 71 25 50 09/03/17 02:00 78 25 128/53 100 Mechanical Ventilator 50 09/03/17 01:10 89 32 50 09/03/17 01:00 68 32 125/57 100 Mechanical Ventilator 50 09/03/17 00:00 99.4 79 26 98/44 100 Mechanical Ventilator 50 99.4 09/02/17 23:09 90 29 50 09/02/17 23:00 86 30 133/54 100 Mechanical Ventilator 50 09/02/17 22:00 94 30 127/56 100 Mechanical Ventilator 50 09/02/17 21:33 96 27 50 09/02/17 21:00 95 28 123/61 100 Mechanical Ventilator 50 09/02/17 21:00 96 164/73 09/02/17 20:00 105 09/02/17 20:00 50 09/02/17 20:00 97.6 109 39 164/73 96 Mechanical Ventilator 50 97.6 09/02/17 19:17 108 36 50 09/02/17 19:00 109 33 163/79 97 Mechanical Ventilator 50 09/02/17 19:00 109 31 170/76 97 Mechanical Ventilator 50 09/02/17 18:58 108 165/81 09/02/17 18:00 106 33 170/76 98 Mechanical Ventilator 50 09/02/17 18:00 106 34 170/76 98 Mechanical Ventilator 50 09/02/17 17:00 109 33 169/87 97 Mechanical Ventilator 50 09/02/17 16:43 103 34 50 09/02/17 16:00 50 09/02/17 16:00 109 09/02/17 16:00 98.3 105 35 160/86 99 Mechanical Ventilator 60 98.3 09/02/17 15:23 102 35 50 09/02/17 15:00 105 34 170/83 99 Mechanical Ventilator 50 09/02/17 14:00 105 35 167/82 100 Mechanical Ventilator 50 09/02/17 13:00 110 23 163/75 100 Mechanical Ventilator 50 09/02/17 12:59 110 32 50 09/02/17 12:00 110 09/02/17 12:00 60 09/02/17 12:00 97.0 111 34 174/69 100 Mechanical Ventilator 60 97.0 09/02/17 11:00 109 37 159/79 99 Mechanical Ventilator 60 09/02/17 10:48 113 34 60 09/02/17 10:00 111 32 144/67 100 Mechanical Ventilator 60 09/02/17 09:00 113 34 139/60 100 Mechanical Ventilator 60 09/02/17 08:47 117 36 60 Intake and Output 09/02/17 09/03/17 19:00 07:00 Intake Total 2292.500 ml 2520 ml Output Total 1270 ml 1275 ml Balance 1022.500 ml 1245 ml Free Water 50 ml 200 ml IV Total 1582.500 ml 1660 ml Tube Feeding 660 ml 660 ml Output Urine Total 1270 ml 1275 ml # Bowel Movements 3 6 Laboratory Tests 09/03/17 04:00: White Blood Count 11.9H, Red Blood Count 2.26L, Hemoglobin 7.3L, Hematocrit 20.3L, Mean Corpuscular Volume 90, Mean Corpuscular Hemoglobin 32.4H, Mean Corpuscular Hemoglobin Concent 36.1H, Red Cell Distribution Width 14.3, Platelet Count 87L, Mean Platelet Volume 6.9, Neutrophils (%) (Auto) , Lymphocytes (%) (Auto) , Monocytes (%) (Auto) , Eosinophils (%) (Auto) , Basophils (%) (Auto) , Neutrophils % (Manual) [Pending], Lymphocytes % (Manual) [Pending], Platelet Estimate [Pending], Platelet Morphology [Pending], Sodium Level 145, Potassium Level 2.7*L, Chloride Level 112H, Carbon Dioxide Level 22, Anion Gap 11, Blood Urea Nitrogen 35H, Creatinine 1.4H, Estimat Glomerular Filtration Rate , Glucose Level 230H, Calcium Level 8.1L, Total Bilirubin 0.2, Aspartate Amino Transf (AST/SGOT) 42H, Alanine Aminotransferase (ALT/SGPT) 35, Alkaline Phosphatase 152H, Total Protein 6.0L, Albumin 1.9L, Globulin 4.1, Albumin/Globulin Ratio 0.5L, Tacrolimus (Prograf) Level [Pending] Height (Feet): 5 Height (Inches): 9.00 Weight (Pounds): 145 Objective General Appearance: WD/WN, lethargic, confused Neck: supple Cardiovascular: normal peripheral pulses, normal rate, regular rhythm Respiratory/Chest: rhonchi - bilaterally Abdomen: normal bowel sounds, non tender, soft, no organomegaly Neurologic: unresponsive KESHIA WEAVER September 03, 2017 08:12
[2017-09-03 08:54] LABS: % IRON SATURATION 29 % (15-50); IRON 22 ug/dL (50-175); TOTAL IRON BINDING CAPACITY 77 ug/dL (250-450)
[2017-09-03] MEDS: Heparin 5000 units/ml inj SUBQ SCH (09:00)
[2017-09-03] MEDS: Metoprolol 25mg tab ORAL SCH (09:06)
[2017-09-03] MEDS: Calcitriol 0.25mcg Cap PEG SCH (09:06)
[2017-09-03] MEDS: Acyclovir 200mg Cap GT SCH (09:07)
[2017-09-03] MEDS: Pantoprazole Inj IVP SCH (09:07)
[2017-09-03] MEDS ORDERED: Tubing IV Secondary IV ONE ×2 (09:16→14:58)
[2017-09-03] MEDS ORDERED: D5NS 1000ml IV ONE (09:16)
--- NOTE | 2017-09-03 09:27 | Cardiology Report ---
APPROVED REPORT EXAM: Two-dimensional and M-mode echocardiogram with Doppler and color Doppler. INDICATION Congestive Heart Failure M-Mode DIMENSIONS IVSd1.2 (0.7-1.1cm)Left Atrium (MM)4.4 (1.6-4.0cm) LVDd4.8 (3.5-5.6cm)Aortic Root3.1 (2.0-3.7cm) PWd1.2 (0.7-1.1cm)Aortic Cusp Exc.1.8 (1.5-2.0cm) LVDs2.8 (2.5-4.0cm) PWs1.8 cm Normal left ventricular chamber size. Mildly depressed systolic function and wall motion. Left ventricular ejection fraction estimated to be 50 %. Mild left ventricular hypertrophy. No evidence of pericardial effusion. All other cardiac chamber sizes are within normal limits. Focal aortic valve sclerosis with adequate cusp excursion. Mildly thickened mitral valve leaflets with normal excursion. Mild mitral annulus and aortic root calcification. Pulmonic valve not well visualized. Normal tricuspid valve structure. Subcostal views not obtainable due to GI tube. A color flow and spectral Doppler study was performed and revealed: No aortic insufficiency. Moderate mitral regurgitation. Mitral inflow velocities indicates possible pseudo normalization pattern implying significant left ventricular diastolic dysfunction (Grade II). Mild tricuspid regurgitation. Tricuspid systolic velocities suggests peak right ventricular systolic pressure of 52 mmHg, consistent with moderate pulmonary hypertension. No pulmonic regurgitation present.
--- NOTE | 2017-09-03 10:55 | Infectious Diseases Prog Note ---
Assessment/Plan Assessment/Plan antibiotics : zosyn, acyclovir, bactrim, fluconazole A 1. acenitobacter pneumonia 2. s/p liver transplant 3. renal failure 4. respiratory failure 5. 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 fungal UTI P 1. d/c zosyn 2. continue bactrim 3. continue fluconazole 4. continue acyclovir 5. will follow up cultures Subjective ROS Limited/Unobtainable: Yes Allergies: Coded Allergies: No Known Allergies (Unverified , 08/30/17) Objective Vital Signs Last 24 Hour Vital Signs Date Time Temp Pulse Resp B/P (MAP) Pulse Ox O2 Delivery O2 Flow Rate FiO2 09/03/17 10:00 69 27 134/67 100 Mechanical Ventilator 50 09/03/17 09:17 77 16 50 09/03/17 09:06 84 134/64 09/03/17 09:06 84 134/64 09/03/17 09:00 84 31 134/64 100 Mechanical Ventilator 50 09/03/17 08:00 50 09/03/17 08:00 82 09/03/17 08:00 99.2 80 25 117/51 100 Mechanical Ventilator 50 99.2 09/03/17 07:12 75 18 50 09/03/17 07:00 74 22 140/57 100 Mechanical Ventilator 50 09/03/17 06:00 78 29 149/67 100 Mechanical Ventilator 50 09/03/17 05:04 78 27 50 09/03/17 05:00 80 26 101/53 100 Mechanical Ventilator 50 09/03/17 04:00 99.2 72 24 103/53 100 Mechanical Ventilator 50 99.2 09/03/17 04:00 50 09/03/17 04:00 89 09/03/17 03:00 80 24 136/44 100 Mechanical Ventilator 50 09/03/17 02:55 71 25 50 09/03/17 02:00 78 25 128/53 100 Mechanical Ventilator 50 09/03/17 01:10 89 32 50 09/03/17 01:00 68 32 125/57 100 Mechanical Ventilator 50 09/03/17 00:00 99.4 79 26 98/44 100 Mechanical Ventilator 50 99.4 09/02/17 23:09 90 29 50 09/02/17 23:00 86 30 133/54 100 Mechanical Ventilator 50 09/02/17 22:00 94 30 127/56 100 Mechanical Ventilator 50 09/02/17 21:33 96 27 50 09/02/17 21:00 95 28 123/61 100 Mechanical Ventilator 50 09/02/17 21:00 96 164/73 09/02/17 20:00 105 09/02/17 20:00 50 09/02/17 20:00 97.6 109 39 164/73 96 Mechanical Ventilator 50 97.6 09/02/17 19:17 108 36 50 09/02/17 19:00 109 33 163/79 97 Mechanical Ventilator 50 09/02/17 19:00 109 31 170/76 97 Mechanical Ventilator 50 09/02/17 18:58 108 165/81 09/02/17 18:00 106 33 170/76 98 Mechanical Ventilator 50 09/02/17 18:00 106 34 170/76 98 Mechanical Ventilator 50 09/02/17 17:00 109 33 169/87 97 Mechanical Ventilator 50 09/02/17 16:43 103 34 50 09/02/17 16:00 50 09/02/17 16:00 109 09/02/17 16:00 98.3 105 35 160/86 99 Mechanical Ventilator 60 98.3 09/02/17 15:23 102 35 50 09/02/17 15:00 105 34 170/83 99 Mechanical Ventilator 50 09/02/17 14:00 105 35 167/82 100 Mechanical Ventilator 50 09/02/17 13:00 110 23 163/75 100 Mechanical Ventilator 50 09/02/17 12:59 110 32 50 09/02/17 12:00 110 09/02/17 12:00 60 09/02/17 12:00 97.0 111 34 174/69 100 Mechanical Ventilator 60 97.0 09/02/17 11:00 109 37 159/79 99 Mechanical Ventilator 60 Height (Feet): 5 Height (Inches): 9.00 Weight (Pounds): 145 HEENT: status post trach Respiratory/Chest: lungs clear Cardiovascular: normal rate, regular rhythm, no gallop/murmur Abdomen: soft, non tender, other - GT Extremities: no edema Microbiology Date/Time Source Procedure Growth Status 08/31/17 14:30 Sputum Gram Stain - Final Resulted 08/31/17 14:30 Sputum Culture - Preliminary A.baumanii Complx - Mdr Resulted Laboratory Tests Test 09/03/17 04:00 09/03/17 09:17 White Blood Count 11.9 K/UL (4.8-10.8) H Red Blood Count 2.26 M/UL (4.70-6.10) L Hemoglobin 7.3 G/DL (14.2-18.0) L Hematocrit 20.3 % (42.0-52.0) L Mean Corpuscular Volume 90 FL (80-99) Mean Corpuscular Hemoglobin 32.4 PG (27.0-31.0) H Mean Corpuscular Hemoglobin Concent 36.1 G/DL (32.0-36.0) H Red Cell Distribution Width 14.3 % (11.6-14.8) Platelet Count 87 K/UL (150-450) L Mean Platelet Volume 6.9 FL (6.5-10.1) Neutrophils (%) (Auto) % (45.0-75.0) Lymphocytes (%) (Auto) % (20.0-45.0) Monocytes (%) (Auto) % (1.0-10.0) Eosinophils (%) (Auto) % (0.0-3.0) Basophils (%) (Auto) % (0.0-2.0) Differential Total Cells Counted 100 Neutrophils % (Manual) 88 % (45-75) H Lymphocytes % (Manual) 6 % (20-45) L Monocytes % (Manual) 2 % (1-10) Eosinophils % (Manual) 0 % (0-3) Basophils % (Manual) 0 % (0-2) Band Neutrophils 4 % (0-8) Platelet Estimate Decreased L Platelet Morphology Normal Hypochromasia 1+ Anisocytosis 1+ Sodium Level 145 MMOL/L (136-145) Potassium Level 2.7 MMOL/L (3.5-5.1) *L Chloride Level 112 MMOL/L (98-107) H Carbon Dioxide Level 22 MMOL/L (21-32) Anion Gap 11 mmol/L (5-15) Blood Urea Nitrogen 35 mg/dL (7-18) H Creatinine 1.4 MG/DL (0.55-1.30) H Estimat Glomerular Filtration Rate mL/min (>60) Glucose Level 230 MG/DL (74-106) H Calcium Level 8.1 MG/DL (8.5-10.1) L Iron Level 22 ug/dL (50-175) L Total Iron Binding Capacity 77 ug/dL (250-450) L Percent Iron Saturation 29 % (15-50) Unsaturated Iron Binding 55 ug/dL (112-346) L Total Bilirubin 0.2 MG/DL (0.2-1.0) Aspartate Amino Transf (AST/SGOT) 42 U/L (15-37) H Alanine Aminotransferase (ALT/SGPT) 35 U/L (12-78) Alkaline Phosphatase 152 U/L (46-116) H Total Protein 6.0 G/DL (6.4-8.2) L Albumin 1.9 G/DL (3.4-5.0) L Globulin 4.1 g/dL Albumin/Globulin Ratio 0.5 (1.0-2.7) L Tacrolimus (Prograf) Level Pending Arterial Blood pH 7.350 (7.350-7.450) Arterial Blood Partial Pressure CO2 44.6 mmHg (35.0-45.0) Arterial Blood Partial Pressure O2 66.8 mmHg (75.0-100.0) L Arterial Blood HCO3 24.1 mmol/L (22.0-26.0) Arterial Blood Oxygen Saturation 92.1 % (92.0-98.0) Arterial Blood Base Excess -1.5 Zia Test Positive Current Medications Medications (Trade) Dose Ordered Sig/Armond Route PRN Reason Start Time Stop Time Status Last Admin Dose Admin Acetaminophen (Tylenol) 650 mg EVERY 4 HOURS PRN GT Mild Pain/Temp > 100.5 08/30/17 23:30 09/29/17 23:29 08/31/17 05:19 Acyclovir (Zovirax) 400 mg BID GT 08/31/17 11:00 09/30/17 10:59 09/03/17 09:07 Albuterol/ Ipratropium (Albuterol/ Ipratropium) 3 ml Q4H PRN HHN Shortness of Breath 08/30/17 22:00 09/04/17 21:59 Amlodipine Besylate (Norvasc) 5 mg DAILY ORAL 09/03/17 09:00 10/03/17 08:59 09/03/17 09:06 Calcitriol (Rocatrol) 0.25 mcg DAILY PEG 08/31/17 10:00 09/30/17 09:59 09/03/17 09:06 Dextrose/Sodium Chloride 1,000 ml @ 50 mls/hr Q20H IV 09/03/17 13:00 10/03/17 12:59 09/02/17 18:59 Fluconazole 50 ml @ 50 mls/hr Q24H IV 08/31/17 11:00 09/07/17 10:59 09/02/17 10:42 Heparin Sodium (Porcine) (Heparin 5000 units/ml) 5,000 units EVERY 12 HOURS SUBQ 08/31/17 09:00 09/30/17 08:59 09/01/17 20:48 Hydrocortisone (Solu-CORTEF) 50 mg EVERY 8 HOURS IV 09/02/17 14:00 10/02/17 13:59 09/03/17 05:55 Levothyroxine Sodium (Synthroid) 75 mcg DAILY GT 08/31/17 11:00 09/30/17 10:59 09/03/17 09:06 Metoprolol Tartrate (Lopressor) 25 mg Q12HR ORAL 09/02/17 21:00 10/02/17 20:59 09/03/17 09:06 Ondansetron HCl (Zofran) 4 mg Q4H PRN IVP Nausea & Vomiting 08/31/17 07:30 09/30/17 07:29 08/31/17 22:11 Pantoprazole (Protonix) 40 mg DAILY IVP 08/31/17 09:00 09/30/17 08:59 09/03/17 09:07 Piperacillin Sod/ Tazobactam Sod 3.375 gm/Dextrose 110 ml @ 27.5 mls/hr Q8HR IVPB 09/01/17 22:00 09/08/17 21:59 09/03/17 05:55 Potassium Chloride (K-Dur) 40 meq ONCE@1200 ORAL 09/03/17 12:00 09/03/17 16:00 Tacrolimus (Prograf) 2 mg EVERY 12 HOURS ORAL 09/01/17 21:00 10/01/17 20:59 09/03/17 09:06 Trimethoprim/ Sulfamethoxazole (Bactrim-DS) 20 ml TWICE A WEEK GT 09/05/17 09:00 09/09/17 08:59 ELY DAVIS September 03, 2017 10:55
[2017-09-03] MEDS ORDERED: Bactrim Susp 20ml GT SCH (11:03)
[2017-09-03] MEDS ORDERED: D5NS 1,000 ML IV SCH (13:00)
[2017-09-03] MEDS ORDERED: NS 275ml ONE (14:58)
--- NOTE | 2017-09-03 20:11 | General Progress Note ---
Assessment/Plan Assessment/Plan Assessment - Cryptogenic cirrhosis - hepatopulmonary syndrome - s/p OLT 03/16/17 [facility] - Resp failure --> s/p trach and PEG - sepsis - rising WBC on stress dose steroids - anemia - azotemia Recommendations - f/u Tacrolimus levels - Prograf dose reduced due to Diflucan - broad spect abx - TF as tolerated - PPI - pulmonary toilet - elevate HOB - follow labs Subjective Allergies: Coded Allergies: No Known Allergies (Unverified , 08/30/17) Subjective above noted patient non verbal to be transferred to [facility] today Objective Last 24 Hour Vital Signs Date Time Temp Pulse Resp B/P (MAP) Pulse Ox O2 Delivery O2 Flow Rate FiO2 09/03/17 14:30 50 09/03/17 14:30 76 25 149/71 98 Mechanical Ventilator 50 09/03/17 14:00 78 23 158/74 99 Mechanical Ventilator 50 09/03/17 13:10 76 19 50 09/03/17 13:00 73 23 128/58 100 Mechanical Ventilator 50 09/03/17 12:00 68 09/03/17 12:00 99.1 75 27 119/59 100 Mechanical Ventilator 50 99.1 09/03/17 12:00 50 09/03/17 11:00 75 27 139/63 100 Mechanical Ventilator 50 09/03/17 10:58 78 16 50 09/03/17 10:00 69 27 134/67 100 Mechanical Ventilator 50 09/03/17 09:17 77 16 50 09/03/17 09:06 84 134/64 09/03/17 09:06 84 134/64 09/03/17 09:00 84 31 134/64 100 Mechanical Ventilator 50 09/03/17 08:00 50 09/03/17 08:00 82 09/03/17 08:00 99.2 80 25 117/51 100 Mechanical Ventilator 50 99.2 09/03/17 07:12 75 18 50 09/03/17 07:00 74 22 140/57 100 Mechanical Ventilator 50 09/03/17 06:00 78 29 149/67 100 Mechanical Ventilator 50 09/03/17 05:04 78 27 50 09/03/17 05:00 80 26 101/53 100 Mechanical Ventilator 50 09/03/17 04:00 99.2 72 24 103/53 100 Mechanical Ventilator 50 99.2 09/03/17 04:00 50 09/03/17 04:00 89 09/03/17 03:00 80 24 136/44 100 Mechanical Ventilator 50 09/03/17 02:55 71 25 50 09/03/17 02:00 78 25 128/53 100 Mechanical Ventilator 50 09/03/17 01:10 89 32 50 09/03/17 01:00 68 32 125/57 100 Mechanical Ventilator 50 09/03/17 00:00 99.4 79 26 98/44 100 Mechanical Ventilator 50 99.4 09/02/17 23:09 90 29 50 09/02/17 23:00 86 30 133/54 100 Mechanical Ventilator 50 09/02/17 22:00 94 30 127/56 100 Mechanical Ventilator 50 09/02/17 21:33 96 27 50 09/02/17 21:00 95 28 123/61 100 Mechanical Ventilator 50 09/02/17 21:00 96 164/73 Intake and Output 09/02/17 09/03/17 19:00 07:00 Intake Total 2292.500 ml 2570 ml Output Total 1270 ml 1275 ml Balance 1022.500 ml 1295 ml Free Water 50 ml 200 ml IV Total 1582.500 ml 1710 ml Tube Feeding 660 ml 660 ml Output Urine Total 1270 ml 1275 ml # Bowel Movements 3 6 Laboratory Tests 09/03/17 04:00: White Blood Count 11.9H, Red Blood Count 2.26L, Hemoglobin 7.3L, Hematocrit 20.3L, Mean Corpuscular Volume 90, Mean Corpuscular Hemoglobin 32.4H, Mean Corpuscular Hemoglobin Concent 36.1H, Red Cell Distribution Width 14.3, Platelet Count 87L, Mean Platelet Volume 6.9, Neutrophils (%) (Auto) , Lymphocytes (%) (Auto) , Monocytes (%) (Auto) , Eosinophils (%) (Auto) , Basophils (%) (Auto) , Differential Total Cells Counted 100, Neutrophils % ( Manual) 88H, Lymphocytes % (Manual) 6L, Monocytes % (Manual) 2, Eosinophils % ( Manual) 0, Basophils % (Manual) 0, Band Neutrophils 4, Platelet Estimate DecreasedL, Platelet Morphology Normal, Hypochromasia 1+, Anisocytosis 1+, Sodium Level 145, Potassium Level 2.7*L, Chloride Level 112H, Carbon Dioxide Level 22, Anion Gap 11, Blood Urea Nitrogen 35H, Creatinine 1.4H, Estimat Glomerular Filtration Rate , Glucose Level 230H, Calcium Level 8.1L, Iron Level 22L, Total Iron Binding Capacity 77L, Percent Iron Saturation 29, Unsaturated Iron Binding 55L, Total Bilirubin 0.2, Aspartate Amino Transf (AST/SGOT) 42H, Alanine Aminotransferase (ALT/SGPT) 35, Alkaline Phosphatase 152H, Total Protein 6.0L, Albumin 1.9L, Globulin 4.1, Albumin/Globulin Ratio 0.5L, Tacrolimus (Prograf) Level [Pending] 09/03/17 09:17: Arterial Blood pH 7.350, Arterial Blood Partial Pressure CO2 44.6, Arterial Blood Partial Pressure O2 66.8L, Arterial Blood HCO3 24.1, Arterial Blood Oxygen Saturation 92.1, Arterial Blood Base Excess -1.5, Zia Test Positive Height (Feet): 5 Height (Inches): 9.00 Weight (Pounds): 145 Objective Thin man NCAT Neck (+) trach CTA RRR Soft Flat, (+) GT no edema obtunded QUITA LAURENT September 03, 2017 20:11
--- NOTE | 2017-09-04 05:15 | Progress Note ---
DATE: 09/03/2017 CARDIOLOGY PROGRESS NOTE SUBJECTIVE: The patient remains on ventilator support. He continues on IV antibiotics. The patient remains off pressors with stable blood pressure parameters. Monitored rhythm sinus. OBJECTIVE: GENERAL: Poorly responsive. VITAL SIGNS: Blood pressure 140/57, pulse 74, respiratory rate 22. LUNGS: Clear with few rhonchi. CARDIAC: Regular rhythm and rate. Normal S1, S2. ABDOMEN: Soft. EXTREMITIES: Trace edema. LABORATORY DATA: White count 11.9, hemoglobin 7.3. Potassium 2.7, BUN 35, creatinine 1.4. Albumin 1.9. IMPRESSION: 1. Sepsis with recovered shock. 2. Respiratory failure. 3. Healthcare-acquired pneumonia. 4. Hypokalemia. 5. Severe anemia. 6. Acute on chronic renal failure, improving. 7. Severe protein-calorie malnutrition. 8. History of liver transplant. 9. Metabolic and toxic encephalopathy. 10. History of pulmonary embolus and underlying DVT. 11. Adrenocortical insufficiency. PLAN: 1. Taper steroids. 2. Nutrition by feeding tube. 3. Ventilator support. 4. Antimicrobials. 5. Potassium replacement. 6. Check magnesium. 7. Titrate antihypertensives. 8. P.r.n. therapy for blood pressure spikes. 9. Maintain adequate hydration. 10. Monitor volume status and cardiorenal parameters. Espinoza Salgado M.D. DR: Kelby JOB#: [id number] CC:
[2017-09-05] MEDS ORDERED: Bactrim Susp 20ml GT SCH (09:00)
--- NOTE | 2017-09-05 14:40 | Discharge Summary ---
Discharge Summary Hospital Course Date of Admission Aug 30, 2017 at 21:19 Date of Discharge September 03, 2017 at 14:59 Admitting Diagnosis SEPSIS HPI Frank Valiente is a 77 year old male who was admitted on Aug 30, 2017 at 21:19 for Sepsis Hospital Course [id number] Discharge Discharge Disposition Patient was discharged to Leslye Chang NP September 05, 2017 14:40
--- NOTE | 2017-09-05 19:16 | Discharge Summary 2 SIG ---
DATE OF ADMISSION: 08/30/2017 DATE OF DISCHARGE: 09/03/2017 CONSULTANTS: 1. Espinoza Salgado M.D. 2. Nedra Mayers M.D. 3. Farida Barakat M.D. 4. Israel Damian M.D. 5. Matias Hernandez M.D. BRIEF HOSPITAL COURSE: The patient is a 77-year-old male who has history of cirrhosis, status post liver transplant done in March 2017. His hospital course was complicated by respiratory failure. He was transferred to longterm acute care. He later returned to [facility] a few weeks ago with complaints of a malfunctioning G-tube. He was discharged to care home facility. On the day of transfer here to [facility], the patient was noted to be febrile and was short of breath. He was also hypotensive. On evaluation at emergency room, the patient was hypotensive. He had chest x-ray evidence of pneumonia, with elevated white count, and evidence of acute renal failure. He has medical history of pituitary adenoma, status post resection, history of diabetes, adrenal insufficiency, history of DVT/PE and GERD, and history of prostate cancer. He was admitted for evaluation of septic shock and pneumonia. He was given aggressive fluid resuscitation and was started empirically on vancomycin and Zosyn. Nasal swab was negative for influenza. He was resumed on tube feeding. The patient is on Prograf. Prograf level 12.6. Urine culture with growth of Fabiola. Sputum culture with Acinetobacter MDR and Klebsiella. Zosyn was discontinued. Prograf dosage was reduced due to interaction with Diflucan. He came in with left sacrococcygeal pressure ulcer DTI extending to the left buttock. He was given wound care. He was taken off pressors and steroids were tapered. He was eventually transferred to [facility]. FINAL DIAGNOSES: 1. Severe sepsis. 2. Pneumonia. 3. Acute on chronic renal failure. 4. Hyponatremia. 5. Liver transplant status. 6. Healthcare-acquired pneumonia. 7. Hypokalemia. 8. Anemia. 9. Severe protein-calorie malnutrition. 10. Toxic metabolic encephalopathy. 11. Adrenocortical insufficiency. 12. History of pulmonary embolus and underlying DVT. 13. Hepatopulmonary syndrome. 14. Cryptogenic cirrhosis. 15. Respiratory failure, on trach and PEG. 16. Azotemia. 17. Acute kidney failure. 18. Cirrhosis. 19. Coma. 20. Left sacrococcygeal DTI extending to left buttock, present on admission. DISPOSITION: The patient was transferred to [facility]. Rigoberto Rai M.D. I have been assigned to dictate discharge summary on this account and I was not involved in the patient's management. Leslye Oliveros N.P. DR: LIAM JOB#: [id number] CC: FATIMAH
== END 2017-09-03 14:59 | disposition short-term general hospital (02) | DRG 871 ==
LOC: EDBD 19:27 → EMR 20:15 → EDBEDREQ 20:45 → ICU 21:19
PROC: 5A1945Z Respiratory Ventilation, 24-96 Consecutive Hours (ICD-10-PCS; principal; 2017-09-01)
DX: A41.9 Sepsis, unspecified organism (principal); E43 Unspecified severe protein-calorie malnutrition; G92 Toxic encephalopathy; R40.20 Unspecified coma; R65.21 Severe sepsis with septic shock; J15.6 Pneumonia due to other Gram-negative bacteria; N17.9 Acute kidney failure, unspecified; E87.1 Hypo-osmolality and hyponatremia; Z94.4 Liver transplant status; E27.40 Unspecified adrenocortical insufficiency; Z43.1 Encounter for attention to gastrostomy; Z94.2 Lung transplant status; J96.11 Chronic respiratory failure with hypoxia; N39.0 Urinary tract infection, site not specified; B48.8 Other specified mycoses; N18.9 Chronic kidney disease, unspecified; E87.6 Hypokalemia; D64.9 Anemia, unspecified; Z86.711 Personal history of pulmonary embolism; Z86.718 Personal history of other venous thrombosis and embolism; K76.81 Hepatopulmonary syndrome; K74.69 Other cirrhosis of liver; L89.150 Pressure ulcer of sacral region, unstageable; L89.320 Pressure ulcer of left buttock, unstageable; E11.9 Type 2 diabetes mellitus without complications; I12.9 Hypertensive chronic kidney disease with stage 1 through stage 4 chronic kidney disease, or unspecified chronic kidney disease; I25.2 Old myocardial infarction; I25.10 Atherosclerotic heart disease of native coronary artery without angina pectoris; J44.9 Chronic obstructive pulmonary disease, unspecified; Z86.73 Personal history of transient ischemic attack (TIA), and cerebral infarction without residual deficits; Z43.0 Encounter for attention to tracheostomy; E87.8 Other disorders of electrolyte and fluid balance, not elsewhere classified; Z85.46 Personal history of malignant neoplasm of prostate; K21.9 Gastro-esophageal reflux disease without esophagitis; I51.3 Intracardiac thrombosis, not elsewhere classified; Z22.322 Carrier or suspected carrier of Methicillin resistant Staphylococcus aureus
CPT/HCPCS: 36415; 36600; 71045; 71046; 80053; 80197; 81001; 81003; 82140; 82550; 82553; 82570; 82803; 82962; 83540; 83550; 83605; 83935; 84133; 84300; 84484; 84550; 85007; 85025; 86710; 86713; 86738; 86850; 86900; 86901; 86920; 87040; 87070; 87081; 87086; 87181; 87205; 93005; 93306; 94002; 94003; 94760; 99291; J2405; J8499